=== PATIENT | female | born 1935 | race African-American/Black ===

== ENCOUNTER 2017-06-05 14:30 | Observation (INO) | payer OTHER, SELFPAY ==
--- NOTE | 2017-06-05 16:23 | RAD REPORT ---
EXAM DESCRIPTION: RAD - Chest Pa And Lat (2 Views) - 06/05/2017 3:21 pm CLINICAL HISTORY: Cough and congestion COMPARISON: September 2016 TECHNIQUE: PA and lateral views of the chest were obtained. 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 No consolidation, mass or failure. Lung markings are slightly more pronounced in the right base. Progressive fibrosis, interstitial edema and interstitial infiltrate will have a similar presentation. Heart size is normal and central vascula ture is within normal limits. No pleural effusion or pneumothorax seen. No acute bony finding noted . No aortic abnormality. IMPRESSION: Baseline interstitial fibrotic change with slightly increased markings in the right base . Findings could reflect progressive fibrosis in the right base or a minimal interstitial edema or infi ltrate.
--- NOTE | 2017-06-05 17:16 | ER ---
Nurse's Notes [facility] Name: Nitza Khanna Age: 82 yrs Sex: Female : 1935 Arrival Date: 06/05/2017 Time: 14:34 Bed 6 Private MD: Aba Rodriguez E Diagnosis: Pneumonia, unspecified organism Presentation: 06/05 15:01 Presenting complaint: Patient states: i have this cough for a week now, went to my doctor, gave me some antibiotics but its not clearing up; denies fever and chills; reports phlegm of yellow color; denies chest pain;. Transition of care: patient was not received from another setting of care. Onset of symptoms was June 05, 2017. Care prior to arrival: None. 15:01 Method Of Arrival: Ambulatory 15:01 Acuity: RADHA 3 22:07 Presenting complaint: Niece reports she tried to get her out of the car and patient ea almost collapsed. Patient reports weakness and SOB on exertion. Triage Assessment: 15:05 General: Appears in no apparent distress. uncomfortable, Behavior is calm, cooperative, hj appropriate for age. Pain: Denies pain. Respiratory: Historical: - Allergies: 15:04 Aspirin; hj - Home Meds: 15:04 alprazolam 0.25 mg Oral tab once a day [Active]; amlodipine 10 mg tab once daily [Active]; Effient Oral [Active]; hydrochlorothiazide 12.5 mg Oral tab once daily [Active]; Iron oral [Active]; lisinopril 40 mg Oral tab once daily [Active]; meclizine 25 mg Oral tab 1 tab once daily [Active]; metoprolol tartrate 50 mg Oral tab once daily [Active]; omeprazole 40 mg Oral cpDR 1 cap once daily [Active]; pravastatin 40 mg Oral tab 1 tab once daily [Active]; simvastatin 40 mg Oral tab once daily [Active]; - PMHx: 15:04 Anemia; DVT; GI Bleed; High Cholesterol; Hypertension; hj - PSHx: 15:04 None; hj - Immunization history:: Adult Immunizations up to date. - Social history:: Smoking status: unknown. Screenin:20 Abuse screen: Denies threats or abuse. Denies injuries from another. Nutritional aj1 screening: No deficits noted. Tuberculosis screening: No symptoms or risk factors identified. 19:31 Fall Risk None identified. aj1 Assessment: 15:05 Cardiovascular: Capillary refill < 3 seconds Patient's skin is warm and dry. hj Respiratory: Airway is patent Respiratory effort is even, unlabored, Respiratory pattern is regular, symmetrical. 16:20 General: Appears in no apparent distress. comfortable, Behavior is calm, cooperative, aj1 appropriate for age. Pain: Denies pain. Neuro: Level of Consciousness is awake, alert, obeys commands, Oriented to person, place, time, situation, Offender Employment Specialist are equal bilaterally Speech is normal, Facial symmetry appears normal. Cardiovascular: Heart tones S1 S2 present Capillary refill < 3 seconds Patient's skin is warm and dry. Rhythm is regular Chest pain is denied. Respiratory: Reports cough that is productive, Airway is patent Respiratory effort is even, unlabored, Respiratory pattern is regular, symmetrical, Breath sounds with wheezes bilaterally. Denies shortness of breath. GI: No signs and/or symptoms were reported involving the gastrointestinal system. : No signs and/or symptoms were reported regarding the genitourinary system. EENT: No signs and/or symptoms were reported regarding the EENT system. Derm: No signs and/or symptoms reported regarding the dermatologic system. Skin is pink, warm \T\ dry. normal. Musculoskeletal: No signs and/or symptoms reported regarding the musculoskeletal system. Circulation, motion, and sensation intact. 17:20 Reassessment: Patient appears in no apparent distress at this time. No changes from aj1 previously documented assessment. Patient and/or family updated on plan of care and expected duration. Pain level reassessed. Patient is alert, oriented x 3, equal unlabored respirations, skin warm/dry/pink. 18:39 Reassessment: Patient and/or family updated on plan of care and expected duration. Pain aj1 level reassessed. General: Appears in no apparent distress. comfortable, Behavior is calm, cooperative. Pain: Denies pain. Neuro: Level of Consciousness is awake, alert, obeys commands, Oriented to person, place, time, situation, Offender Employment Specialist are equal bilaterally Speech is normal, Facial symmetry appears normal. Cardiovascular: Patient's skin is warm and dry. Respiratory: Airway is patent Respiratory effort is even, unlabored, Respiratory pattern is regular, symmetrical. GI: No signs and/or symptoms were reported involving the gastrointestinal system. : No signs and/or symptoms were reported regarding the genitourinary system. EENT: No signs and/or symptoms were reported regarding the EENT system. Derm: Skin is pink, warm \T\ dry. normal. Musculoskeletal: Circulation, motion, and sensation intact. 18:45 Reassessment: discharge delayed due to Levaquin has not finished infusing. aj1 19:28 Reassessment: Patient appears in no apparent distress at this time. No changes from aj1 previously documented assessment. Patient and/or family updated on plan of care and expected duration. Pain level reassessed. Patient is alert, oriented x 3, equal unlabored respirations, skin warm/dry/pink. 23:15 Reassessment: Pt returned to ER after being discharged. FUSE COILER ordered for immediate tl2 admission. IV initiated and labs set. Awaiting room assigment. 06/06 00:41 Reassessment: report given to Pop ESPINOZA. bb 00:41 Reassessment: Patient appears in no apparent distress at this time. Patient and/or tl2 family updated on plan of care and expected duration. Pain level reassessed. Patient is alert, oriented x 3, equal unlabored respirations, skin warm/dry/pink. Pt stable and ready for transport to floor. Vital Signs: 06/05 15:05 BP 115 / 58; Pulse 71; Resp 18; Temp 98.1(TE); Pulse Ox 93% on R/A; Weight 65.77 kg; hj Height 5 ft. 0 in. (152.40 cm); Pain 0/10; 16:15 Pulse Ox 88% on R/A; aj1 16:19 BP 117 / 73; Pulse 83; Resp 24; Pulse Ox 95% on 2 lpm NC; aj1 17:20 BP 129 / 68; Pulse 81; Resp 18; Pulse Ox 100% on Nebulizer Mask; aj1 18:40 BP 114 / 62; Pulse 79; Resp 22; Pulse Ox 95% on 2 lpm NC; aj1 19:28 BP 123 / 56; Pulse 87; Resp 22; Pulse Ox 92% on R/A; aj1 22:11 BP 107 / 55; Pulse 80; Resp 20 S; Temp 97.5(O); Pulse Ox 93% ; Weight 61.23 kg; Height ea 5 ft. 5 in. (165.10 cm); Pain 0/10; 22:11 Body Mass Index 22.46 (61.23 kg, 165.10 cm) ea ED Course: 14:34 Patient arrived in ED. mr 14:34 Aba Rodriguez MD is Private Physician. mr 15:03 Triage completed. hj 15:05 Arm band placed on right wrist. hj 15:19 Patient moved to radiology via wheelchair. mh1 15:19 X-ray completed. Patient tolerated procedure well. mh1 15:19 Patient moved back from radiology. mh1 16:05 Carolina Burrell FNP-C is PHCP. snw 16:05 Tony Werner MD is Attending Physician. snw 16:18 Rica Olivares RN is Primary Nurse. aj1 16:20 Patient has correct armband on for positive identification. Placed in gown. Bed in low aj1 position. Call light in reach. Side rails up X 1. Adult w/ patient. certification and selection specialist on. Pulse ox on. NIBP on. 16:20 No provider procedures requiring assistance completed. aj1 17:15 Kyliegh Jeter MD is Hospitalizing Provider. snw 18:13 Emeka Mathis MD is Referral Physician. snw 18:13 Jonathan Brizuela MD is Referral Physician. snw 19:28 IV discontinued, intact, bleeding controlled, No redness/swelling at site. Pressure aj1 dressing applied. 21:34 Primary Nurse role handed off by Rica Olivares RN ds1 21:34 Attending Physician role handed off by Tony Werner MD ds1 22:40 Mely Segovia MD is Hospitalizing Provider. snw 23:10 Inserted saline lock: 20 gauge in right antecubital area, using aseptic technique. ak1 06/06 00:40 Sammi Mckinnon RN is Primary Nurse. tl2 00:41 Patient admitted, IV remains in place. tl2 Administered Medications: 06/05 17:39 Drug: Albuterol 2.5 mg Route: Inhalation; aj1 17:39 Drug: LevaQUIN 500 mg Volume: 100 ml; Route: IVPB; Infused Over: 60 mins; Site: right aj1 antecubital; 19:34 Follow up: IV Status: Completed infusion; IV Intake: 100ml aj1 17:59 Drug: Albuterol 2.5 mg Route: Inhalation; aj1 18:20 Drug: Albuterol 2.5 mg Route: Inhalation; aj1 19:34 Follow up: Response: No adverse reaction aj1 23:14 Drug: Albuterol 2.5 mg Route: Inhalation; tl2 Intake: 19:34 IV: 100ml; Total: 100ml. aj1 Outcome: 17:16 Decision to Hospitalize by Provider. snw 18:14 Discharge ordered by MD. snw 19:31 Discharged to home ambulatory. aj1 19:31 Condition: good 19:31 Discharge instructions given to patient, family, Instructed on discharge instructions, follow up and referral plans. medication usage, Demonstrated understanding of instructions, follow-up care, medications, Prescriptions given X 3. 19:35 Patient left the ED. aj1 22:41 Decision to Hospitalize by Provider. snw 06/06 00:43 Patient left the ED. tl2 Signatures: Rica Olivares RN RN aj1 Carolina Burrell, MANAGER BOOK-C MANAGER BOOK-Csnw Mari Mariano mr Alon Yulia 1 Dora Jose 1 Nehal Garland RN RN bb Krenek, Amber, RN RN ak1 Inocencio Posada RN RN hj Knox, Taylor, RN RN tl2 Meryl Bethea RN RN ea Corrections: (The following items were deleted from the chart) 06/05 15:05 15:01 Presenting complaint: Patient states: i have this cough for a week now, denies hj fever and chills; reports phlegm of yellow color; denies chest pain; hj
--- NOTE | 2017-06-05 17:16 | EDPHYS ---
Physician Documentation [facility] Name: Nitza Khanna Age: 82 yrs Sex: Female : 1935 Arrival Date: 06/05/2017 Time: 14:34 Bed 6 Private MD: Aba Rodriguez E ED Physician HPI: 06/05 16:18 This 82 yrs old Black Female presents to ER via Ambulatory with complaints of Cough, snw Congestion. 16:18 The patient or guardian reports cough, described as moderate. Onset: The snw symptoms/episode began/occurred 1 week(s) ago, and became persistent. Severity of symptoms: At their worst the symptoms were moderate. Associated signs and symptoms: Pertinent positives: rhinorrhea, productive cough, this patient has no pertinent positive symptoms. It is unknown whether or not the patient has had similar symptoms in the past. The patient has been recently seen by a physician: the patient's primary care provider, Dr. Brizuela with similar presenting complaints, was given a prescription for antibiotics. will obtain medication names from [facility]. Historical: - Allergies: 15:04 Aspirin; hj - Home Meds: 15:04 alprazolam 0.25 mg Oral tab once a day [Active]; amlodipine 10 mg tab once daily [Active]; Effient Oral [Active]; hydrochlorothiazide 12.5 mg Oral tab once daily [Active]; Iron oral [Active]; lisinopril 40 mg Oral tab once daily [Active]; meclizine 25 mg Oral tab 1 tab once daily [Active]; metoprolol tartrate 50 mg Oral tab once daily [Active]; omeprazole 40 mg Oral cpDR 1 cap once daily [Active]; pravastatin 40 mg Oral tab 1 tab once daily [Active]; simvastatin 40 mg Oral tab once daily [Active]; - PMHx: 15:04 Anemia; DVT; GI Bleed; High Cholesterol; Hypertension; hj - PSHx: 15:04 None; hj - Immunization history:: Adult Immunizations up to date. - Social history:: Smoking status: unknown. ROS: 16:18 Constitutional: Negative for fever, chills, and weight loss, Eyes: Negative for injury, snw pain, redness, and discharge, ENT: Negative for injury, pain, and discharge, Neck: Negative for injury, pain, and swelling, Cardiovascular: Negative for chest pain, palpitations, and edema, Respiratory: Positive for shortness of breath, cough, wheezing, and pleuritic chest pain, Abdomen/GI: Negative for abdominal pain, nausea, vomiting, diarrhea, and constipation, Back: Negative for injury and pain, : Negative for injury, bleeding, discharge, and swelling, MS/Extremity: Negative for injury and deformity, Skin: Negative for injury, rash, and discoloration, Neuro: Negative for headache, weakness, numbness, tingling, and seizure. Exam: 16:16 Constitutional: This is a well developed, well nourished patient who is awake, alert, snw and in no acute distress. Head/Face: Normocephalic, atraumatic. Eyes: Pupils equal round and reactive to light, extra-ocular motions intact. Lids and lashes normal. Conjunctiva and sclera are non-icteric and not injected. Cornea within normal limits. Periorbital areas with no swelling, redness, or edema. ENT: Nares patent. No nasal discharge, no septal abnormalities noted. Tympanic membranes are normal and external auditory canals are clear. Oropharynx with no redness, swelling, or masses, exudates, or evidence of obstruction, uvula midline. Mucous membranes moist. Neck: Trachea midline, no thyromegaly or masses palpated, and no cervical lymphadenopathy. Supple, full range of motion without nuchal rigidity, or vertebral point tenderness. No Meningismus. Chest/axilla: Normal chest wall appearance and motion. Nontender with no deformity. No lesions are appreciated. Cardiovascular: Regular rate and rhythm with a normal S1 and S2. No gallops, murmurs, or rubs. Normal PMI, no JVD. No pulse deficits. 16:16 Abdomen/GI: Soft, non-tender, with normal bowel sounds. No distension or tympany. No guarding or rebound. No evidence of tenderness throughout. Back: No spinal tenderness. No costovertebral tenderness. Full range of motion. Skin: Warm, dry with normal turgor. Normal color with no rashes, no lesions, and no evidence of cellulitis. MS/ Extremity: Pulses equal, no cyanosis. Neurovascular intact. Full, normal range of motion. Neuro: Awake and alert, GCS 15, oriented to person, place, time, and situation. Cranial nerves II-XII grossly intact. Motor strength 5/5 in all extremities. Sensory grossly intact. Cerebellar exam normal. Normal gait. 16:16 Respiratory: the patient does not display signs of respiratory distress, Respirations: accessory muscle usage, shallow respirations, Breath sounds: bronchial sounds, that are moderate, are heard in the left posterior lower lobe, wheezing: is heard diffusely. Vital Signs: 15:05 BP 115 / 58; Pulse 71; Resp 18; Temp 98.1(TE); Pulse Ox 93% on R/A; Weight 65.77 kg; hj Height 5 ft. 0 in. (152.40 cm); Pain 0/10; 16:15 Pulse Ox 88% on R/A; aj1 16:19 BP 117 / 73; Pulse 83; Resp 24; Pulse Ox 95% on 2 lpm NC; aj1 17:20 BP 129 / 68; Pulse 81; Resp 18; Pulse Ox 100% on Nebulizer Mask; aj1 18:40 BP 114 / 62; Pulse 79; Resp 22; Pulse Ox 95% on 2 lpm NC; aj1 19:28 BP 123 / 56; Pulse 87; Resp 22; Pulse Ox 92% on R/A; aj1 22:11 BP 107 / 55; Pulse 80; Resp 20 S; Temp 97.5(O); Pulse Ox 93% ; Weight 61.23 kg; Height ea 5 ft. 5 in. (165.10 cm); Pain 0/10; 22:11 Body Mass Index 22.46 (61.23 kg, 165.10 cm) ea MDM: 16:07 Patient medically screened. [facility] 16:25 Data reviewed: vital signs, nurses notes. Data interpreted: Pulse oximetry: on room air snw is 95 %. Interpretation: acceptable. Counseling: I had a detailed discussion with the patient and/or guardian regarding: the historical points, exam findings, and any diagnostic results supporting the discharge/admit diagnosis, lab results, radiology results. Other consultation: [facility] - pt was given recent rx for Z-max, Tessalon, and HCTZ. 18:15 Special discussion: Based on the history and exam findings, there is no indication for snw further emergent testing or inpatient evaluation. I discussed with the patient/guardian the need to see the primary care provider for further evaluation of the symptoms. I discussed with the patient/guardian the need to see the canceling and cutting control clerk for further evaluation of the symptoms. ED course: Dr. Jeter saw pt in ED, spoke with Dr. Mathis regarding f/u urgently and he will see her tomorrow. . 22:36 ED course: pt briefly left ED, went to pharmacy to fill prescriptions. The medications snw were going to take a while so the patients Daughter took her to the house. Ms. Khanna felt weak and needed assistance to get out of the car. + worsening crackles. . 06/05 16:16 Order name: Basic Metabolic Panel snw 06/05 16:16 Order name: CBC with Diff snw 06/05 16:16 Order name: Hepatic Function snw 06/05 16:16 Order name: Lipase snw 06/05 16:16 Order name: Blood Culture Adult (2) snw 06/05 17:37 Order name: CBC with Automated Diff; Complete Time: 18:17 EDMS 06/05 15:01 Order name: Chest Pa And Lat (2 Views) XRAY w 06/05 17:48 Order name: Basic Metabolic Panel; Complete Time: 18:07 EDMS 06/05 17:48 Order name: Lipase; Complete Time: 18:07 EDMS 06/05 17:54 Order name: Liver (Hepatic) Function; Complete Time: 18:07 EDMS 06/05 18:14 Order name: CBC Smear Scan; Complete Time: 18:17 EDMS 06/05 22:35 Order name: Procalcitonin snw 06/05 22:35 Order name: Lactate w 06/05 23:49 Order name: Lactate; Complete Time: 00:22 EDMS 06/05 16:16 Order name: IV Saline Lock; Complete Time: 17:54 snw 06/05 16:16 Order name: Labs collected and sent; Complete Time: 17:54 snw 06/05 16:23 Order name: RAD; Complete Time: 16:32 EDMS 06/05 17:56 Order name: Diet Heart Healthy; Complete Time: 17:57 aj 06/05 22:35 Order name: SL; Complete Time: 23:10 snw Administered Medications: 17:39 Drug: Albuterol 2.5 mg Route: Inhalation; aj1 17:39 Drug: LevaQUIN 500 mg Volume: 100 ml; Route: IVPB; Infused Over: 60 mins; Site: right aj1 antecubital; 19:34 Follow up: IV Status: Completed infusion; IV Intake: 100ml aj1 17:59 Drug: Albuterol 2.5 mg Route: Inhalation; aj1 18:20 Drug: Albuterol 2.5 mg Route: Inhalation; aj1 19:34 Follow up: Response: No adverse reaction aj1 23:14 Drug: Albuterol 2.5 mg Route: Inhalation; tl2 Disposition: 06/06 14:52 Co-signature as Attending Physician, Tony AGUILA I agree with the assessment and torsten plan of care. Disposition: 06/05/17 22:41 Hospitalization ordered by Mely Segovia for Inpatient Admission. Preliminary diagnosis is Pneumonia, unspecified organism. - Bed requested for Telemetry/MedSurg (Inpatient). - Status is Inpatient Admission. tl2 - Condition is Stable. - Problem is an acute exacerbation. - Symptoms have worsened. UTI on Admission? No Signatures: Dispatcher [employer] EDRica Taylor RN RN aj1 Kylie Kelly, RN Tony Munson MD MD cha Therrien, Shelly, TRANSFER AND PUMPHOUSE OPERATOR-C TRANSFER AND PUMPHOUSE OPERATOR-Csnw Inocencio Posada RN Sammi Paredes RN RN tl2
[2017-06-05 17:28] LABS: Absolute Lymphocytes (CBC) 1.3 K/uL (0.7-4.9); Absolute Monocytes 1.3 K/uL (0.1-1.3); Absolute Neutrophil 5.9 K/uL (1.8-8.0); Basophils % 0.4 % (0-1.3); Eosinophils % 0.1 % (0-4.4); MCH 23.2 pg (27.0-35.0); MCV 71.1 fL (80-100); MPV 9.3 fL (7.6-11.3); Monocytes % 15.2 % (3.3-12.3)
[2017-06-05] MEDS ORDERED: Levofloxacin500mg IV 500 MG/100 ML BAG IV ONE (17:46)
[2017-06-05] MEDS ORDERED: ALBUTEROL 2.5 MG/3 ML NEB SOL ONE ×2 (17:46→23:31)
[2017-06-05 17:47] LABS: Potassium 3.4 mEq/L (3.6-5.0)
[2017-06-05 17:54] LABS: Albumin 3.7 g/dL (3.2-5.5); Bilirubin Direct 0.1 mg/dL (0-0.2); Bilirubin Total 0.7 mg/dL (0.3-1.2); Protein, Total 8.1 g/dL (6.0-8.3)
[2017-06-05 18:13] LABS: Blood Morphology Comment NOT SEEN (NOT SEEN); Platelet Estimate ADEQ; Urine White Blood Cell Casts OK
[2017-06-06 00:56] VITALS: BMI 24.8
[2017-06-06] MEDS ORDERED: ACETAMINOPHEN 500 MG TAB PO PRN (01:28)
[2017-06-06] MEDS ORDERED: ONDANSETRON 4 MG/2 ML VIAL IV PRN (01:28)
[2017-06-06] MEDS: NA CHLORIDE 0.9% 1,000 ML IV SCH ×2 (02:05→10:07)
[2017-06-06] MEDS: METHYLPREDNISOLONE 125 MG INJ IV SCH ×2 (02:06→05:17)
--- NOTE | 2017-06-06 02:25 | P.HP ---
Certification for Inpatient Patient admitted to: Inpatient With expected LOS: >2 Midnights Practitioner: I am a practitioner with admitting privileges, knowledge of patient current condition, hospital course, and medical plan of care. Services: Services provided to patient in accordance with Admission requirements found in Title 42 Section 412.3 of the Code of Federal Regulations Patient History Date of Service: 06/05/17 Reason for admission: pneumonia History of Present Illness: Ms Khanna is an 82 years old woman with history of COPD, who start about 5 days ago with dry cough and progressive SOB. She went to see her PCP and was prescribed oral antibiotics. The patient did not improved her symptoms, and she came to ED this morning. She was diagnosed with right lower lobe pneumonia. It was felt that the patient was clinically stable to be discharged on oral Levaquin. However, shortly after leave the hospital, the patient had a near syncope episode, worsening her SOB as well. The patient then came back to ED. Lab work show normal WBC count with elevated lactate and normal procalcitonin. CXR as mentioned above shows chronic fibrotic pattern with a right lower lobe infiltrate. No fever in ER, O2 sat 92% on RA. Allergies aspirin Allergy (Severe, Verified 08/03/15 14:22) Hives/Rash Home Medications: Lisinopril 40 mg PO DAILY #0 tablet 08/27/11 Meclizine HCl 25 mg PO TID PRN 02/17/14 Pravastatin Sodium [Pravachol] 40 mg PO DAILY 02/17/14 Docusate Sodium 100 mg PO BID 06/23/15 Ferrous Sulfate [Ferrous Sulfate*] 325 mg PO DAILY 06/23/15 Hydrochlorothiazide 12.5 mg PO DAILY 06/23/15 Aspirin [Adult Low Dose Aspirin EC] 81 mg PO DAILY #30 tablet. 06/26/15 Pantoprazole [Protonix Tab*] 40 mg PO DAILY 12/23/15 Amlodipine [Norvasc*] 5 mg PO DAILY #30 tab 12/24/15 Ferrous Sulfate 325 mg PO DAILY #30 tablet 12/24/15 Metoprolol Tartrate [Lopressor*] 50 mg PO BID #60 tab 12/24/15 - Past Medical/Surgical History Diabetic: No -: SHINGLES -: HTN -: HYPERLIPIDEMIA -: ANEMIA -: DVT IN LEFT LEG -: GI BLEED -: HYSTERECTOMY -: CABG - Family History Mother -: Heart disease - Social History Smoking Status: Light Tobacco smoker (1-9 cigarettes/day) Counseled patient to stop smoking for: less than 10 minutes Alcohol use: No CD- Drugs: No Caffeine use: Yes Place of Residence: Home Review of Systems 10-point ROS is otherwise unremarkable Physical Examination - Vital Signs Temperature: 97.3 F Blood Pressure: 119/63 Pulse: 95 Respirations: 18 Pulse Ox (%): 94 - Physical Exam General: Alert, In no apparent distress HEENT: Atraumatic, PERRLA, Mucous membr. moist/pink, EOMI, Sclerae nonicteric Neck: Supple, 2+ carotid pulse no bruit, No LAD, Without JVD or thyroid abnormality Respiratory: Normal air movement, Crackles/rales (bibasilar crackles, more on the right base) Cardiovascular: Regular rate/rhythm, Normal S1 S2 Gastrointestinal: Normal bowel sounds, No tenderness Musculoskeletal: No tenderness Integumentary: No rashes Neurological: Normal speech, Normal strength at 5/5 x4 extr, Normal tone, Normal affect Lymphatics: No axilla or inguinal lymphadenopathy - Studies Laboratory Data (last 24 hrs) 06/05/17 17:05: WBC 8.5, Hgb 13.7, Hct 42.0, Plt Count 246 06/05/17 17:05: Sodium 142, Potassium 3.4 L, BUN 38 H, Creatinine 1.79 H, Glucose 115, Total Bilirubin 0.7, AST 16, ALT 12, Alkaline Phosphatase 82, Lipase 30 Assessment and Plan - Problems (Diagnosis) (1) COPD exacerbation Current Visit: Yes Status: Acute (2) Near syncope Current Visit: Yes Status: Acute (3) Pulmonary fibrosis Current Visit: Yes Status: Acute (4) Pneumonia Current Visit: Yes Status: Acute Qualifiers: Pneumonia type: due to unspecified organism Laterality: right Lung location: lower lobe of lung Qualified Code(s): J18.1 - Lobar pneumonia, unspecified organism (5) Acute kidney injury superimposed on CKD Current Visit: Yes Status: Acute - Plan Ms Khanna will be admitted to the hospital due to near syncope episode in context of respiratory distress secondary to COPD exacerbation. CXR consistent with right lower lobe infiltrate. Will order empiric IV Levaquin, consult Dr Mathis, continue breating treatments, IV steroids and IV fluids. - Advance Directives Does patient have a Living Will: No Does patient have a Durable POA for Healthcare: Yes - Code Status/Comfort Care Code Status Assessed: Yes Code Status: Full Code
[2017-06-06] MEDS: IPRATROPIUM BROM 0.5MG/2.5ML NEB SCH ×3 (03:00→08:29)
[2017-06-06] MEDS: ALBUTEROL 2.5 MG/3 ML NEB SOL NEB SCH ×3 (03:00→08:29)
[2017-06-06 06:21] LABS: Absolute Lymphocytes (CBC) 0.4 K/uL (0.7-4.9); Absolute Monocytes 0.1 K/uL (0.1-1.3); Absolute Neutrophil 6.3 K/uL (1.8-8.0); Basophils % 0.5 % (0-1.3); Eosinophils % 0.1 % (0-4.4); Hematocrit 39.1 % (36.0-45.0); Lymphocytes % 6.4 % (15.3-44.8); MCH 23.1 pg (27.0-35.0); MCV 70.6 fL (80-100); MPV 9.7 fL (7.6-11.3); RBC Red Blood Cell Count 5.54 M/uL (3.86-4.86)
[2017-06-06 06:26] LABS: Potassium 3.3 mEq/L (3.6-5.0)
[2017-06-06] MEDS ORDERED: POTASSIUM 25 MEQ EFFERV TAB PO ONE (07:00)
[2017-06-06] MEDS ORDERED: FUROSEMIDE 40 MG/4 ML VIAL IV SCH (09:00)
[2017-06-06] MEDS ORDERED: Levofloxacin500mg IV 500 MG/100 ML BAG IV SCH (09:00)
--- NOTE | 2017-06-06 10:24 | P.CNS ---
Date of Consult: 06/06/17 Chief Complaint: pneumonia History of Present Illness: Patient is 82 years of age admitted to the hospital complaining of fogginess she denied any syncopal attacks also has some chronic intermittent dyspnea he is an active smoker does not use any bronchodilators at home was coughing up some pink sputum no new complaints no fever chills or chest pain Allergies aspirin Allergy (Severe, Verified 08/03/15 14:22) Hives/Rash Home Medications: Lisinopril 40 mg PO DAILY #0 tablet 08/27/11 Meclizine HCl 25 mg PO TID PRN 02/17/14 Pantoprazole [Protonix Tab*] 40 mg PO DAILY 12/23/15 Ferrous Sulfate 325 mg PO DAILY #30 tablet 12/24/15 Metoprolol Tartrate [Lopressor*] 50 mg PO BID #60 tab 12/24/15 Amlodipine [Norvasc*] 10 mg PO DAILY 06/06/17 Atorvastatin Calcium [Lipitor] 1 tab PO DAILY 06/06/17 Hydrochlorothiazide [Hydrochlorothiazide] 1 tab PO DAILY 06/06/17 - Past Medical/Surgical History Diabetic: No -: SHINGLES -: HTN -: HYPERLIPIDEMIA -: ANEMIA -: DVT IN LEFT LEG -: GI BLEED -: HYSTERECTOMY -: CABG - Family History Mother Medical History: Heart disease - Social History Smoking Status: Unknown if ever smoked Alcohol use: No CD- Drugs: No Caffeine use: Yes Place of Residence: Home Review of Systems General: Weakness Respiratory: Shortness of Breath Physical Examination Temp Pulse Resp BP Pulse Ox 98.1 F 91 H 18 169/80 H 92 06/06/17 08:00 06/06/17 08:00 06/06/17 08:00 06/06/17 08:00 06/06/17 08:00 General: Alert, Oriented x3 Neck: Supple Respiratory: Clear to auscultation bilaterally Cardiovascular: No edema, Normal S1 S2 Gastrointestinal: Normal bowel sounds, Soft and benign Laboratory Data (last 24 hrs) 06/05/17 17:05: WBC 8.5, Hgb 13.7, Hct 42.0, Plt Count 246 06/05/17 17:05: Sodium 142, Potassium 3.4 L, BUN 38 H, Creatinine 1.79 H, Glucose 115, Total Bilirubin 0.7, AST 16, ALT 12, Alkaline Phosphatase 82, Lipase 30 - Problems (1) Dizziness Onset Date: 05/29/15 Current Visit: No Status: Acute Plan: Patient is 82 years of age admitted with some dizziness intermittent shortness of breath. History of coronary artery disease also has renal failure I doubt if she has pneumonia are normal white count I suggest that she be started on Lasix fluid restriction she probably has underlying obstructive airways disease a trial of bronchodilators all antibiotics needed patient can be discharged home to follow up with me in 2 weeks room-air saturation is satisfactory and also given a low-dose prednisone 10 twice a day for 7 days
[2017-06-06 10:44] VITALS: O2SAT 92
[2017-06-06 13:56] VITALS: BP 175/72; TEMP 99
[2017-06-06] MEDS ORDERED: ALBUTEROL 2.5 MG/3 ML NEB SOL NEB SCH (14:00)
[2017-06-06] MEDS ORDERED: IPRATROPIUM BROM 0.5MG/2.5ML NEB SCH (14:00)
--- NOTE | 2017-06-06 14:50 | ECHO ---
HEIGHT: 5 ft 0 in WEIGHT: 127 lb 1.6 oz DATE OF STUDY: 06/06/[address]: Emeka Mathis MD 2-DIMENSIONAL: YES M.MODE: YES DOPPLER: YES COLOR FLOW: YES TDS: PORTABLE: DEFINITY: BUBBLE STUDY: DIAGNOSIS: POSSIBLE SYNCOPAL ATTACK CARDIAC HISTORY: CATHERIZATION: NO SURGERY: NO PROSTHETIC VALVE: NO PACEMAKER: NO MEASUREMENTS (cm) DIASTOLIC (NORMALS) SYSTOLIC (NORMALS) IVSd 1.1 (0.6-1.2) LA Diam 3.4 (1.9-4.0) LVEF 88% LVIDd 4.2 (3.5-5.7) LVIDs 1.8 (2.0-3.5) %FS 58% LVPWd 1.0 (0.6-1.2) Ao Diam 2.5 (2.0-3.7) 2 DIMENSIONAL ASSESSMENT: RIGHT ATRIUM: DILATED LEFT ATRIUM: DILATED RIGHT VENTRICLE: NORMAL LEFT VENTRICLE: NORMAL TRICUSPID VALVE: NORMAL MITRAL VALVE: NORMAL PULMONIC VALVE: NORMAL AORTIC VALVE: NORMAL PERICARDIAL EFFUSION: NONE AORTIC ROOT: NORMAL LEFT VENTRICULAR WALL MOTION: NORMAL DOPPLER/COLOR FLOW: MILD MITRAL AND TRICUSPID REGURGITATION. ESTIMATED RIGHT VENTRICULAR SYSTOLIC PRESSURE 40 mmHg (MILD PULMONARY HYPERTENSION). IMPAIRED LEFT VENTRICULAR COMPLIANCE. COMMENTS: NORMAL LEFT VENTRICULAR EJECTION FRACTION. DILATED LEFT AND RIGHT ATRIUM. MILD MITRAL AND TRICUSPID REGURGITATION. MILD PULMONARY HYPERTENSION. IMPAIRED LEFT VENTRICULAR RELAXATION. TECHNOLOGIST: AUNDREA ARMSTRONG
--- NOTE | 2017-06-06 16:13 | P.SSS ---
Patient History Date of Service: 06/06/17 Primary Care Provider: Dr Hale. Reason for admission: pneumonia History of Present Illness: Ms Khanna is an 82 years old woman with history of COPD, who start about 5 days ago with dry cough and progressive SOB. She went to see her PCP and was prescribed oral antibiotics. The patient did not improved her symptoms, and she came to ED this morning. She was diagnosed with right lower lobe pneumonia. It was felt that the patient was clinically stable to be discharged on oral Levaquin. However, shortly after leave the hospital, the patient had a near syncope episode, worsening her SOB as well. The patient then came back to ED. Lab work show normal WBC count with elevated lactate and normal procalcitonin. CXR as mentioned above shows chronic fibrotic pattern with a right lower lobe infiltrate. No fever in ER, O2 sat 92% on RA. Allergies aspirin Allergy (Severe, Verified 08/03/15 14:22) Hives/Rash Home Medications: Lisinopril 40 mg PO DAILY #0 tablet 08/27/11 Meclizine HCl 25 mg PO TID PRN 02/17/14 Pantoprazole [Protonix Tab*] 40 mg PO DAILY 12/23/15 Ferrous Sulfate 325 mg PO DAILY #30 tablet 12/24/15 Metoprolol Tartrate [Lopressor*] 50 mg PO BID #60 tab 12/24/15 Amlodipine [Norvasc*] 10 mg PO DAILY 06/06/17 Atorvastatin Calcium [Lipitor] 1 tab PO DAILY 06/06/17 Fluticasone/Salmeterol [Advair Hfa 115-21 Mcg Inhaler] 8 gm IH BID #1 aer.w.adap 06/06/17 Furosemide [Lasix] 20 mg PO DAILY #30 tab 06/06/17 Hydrochlorothiazide 1 tab PO DAILY 06/06/17 Prednisone [Prednisone*] 20 mg PO BID #20 tab 06/06/17 - Past Medical/Surgical History Has patient received pneumonia vaccine in the past: No Diabetic: No -: SHINGLES -: HTN -: HYPERLIPIDEMIA -: ANEMIA -: DVT IN LEFT LEG -: GI BLEED -: HYSTERECTOMY -: CABG - Family History Mother -: Heart disease - Social History Smoking Status: Light Tobacco smoker (1-9 cigarettes/day) Alcohol use: No CD- Drugs: No Caffeine use: Yes Place of Residence: Home Review of Systems 10-point ROS is otherwise unremarkable Physical Examination - Vital Signs Temperature: 99 F Blood Pressure: 175/72 Pulse: 104 Respirations: 18 Pulse Ox (%): 91 - Physical Exam General: Alert, In no apparent distress, Oriented x3 HEENT: Atraumatic, PERRLA, Mucous membr. moist/pink, EOMI, Sclerae nonicteric Neck: Supple, 2+ carotid pulse no bruit, No LAD, Without JVD or thyroid abnormality Respiratory: Clear to auscultation bilaterally, Normal air movement Cardiovascular: Regular rate/rhythm, Normal S1 S2 Gastrointestinal: Normal bowel sounds, No tenderness Musculoskeletal: No tenderness Integumentary: No rashes Neurological: Normal gait, Normal speech, Normal strength at 5/5 x4 extr, Normal tone, Normal affect Lymphatics: No axilla or inguinal lymphadenopathy - Studies Laboratory Data (last 24 hrs) 06/05/17 17:05: WBC 8.5, Hgb 13.7, Hct 42.0, Plt Count 246 06/05/17 17:05: Sodium 142, Potassium 3.4 L, BUN 38 H, Creatinine 1.79 H, Glucose 115, Total Bilirubin 0.7, AST 16, ALT 12, Alkaline Phosphatase 82, Lipase 30 - Diagnosis (Problem(s)) (1) COPD exacerbation Onset Date: 06/06/17 Current Visit: Yes Status: Acute Plan: Most likely 2/2 to pulmonary Fibrosis -Pulmonology Consulted. Appreicated Reccs -DC home with PO steriods and Bronchodilaters (2) CHF (congestive heart failure) Current Visit: Yes Status: Acute Plan: Chronic CHF -LASix 20mg Daily started/. -Low NA diet. Qualifiers: Heart failure type: diastolic Heart failure chronicity: chronic Qualified Code(s): I50.32 - Chronic diastolic (congestive) heart failure (3) Near syncope Onset Date: 06/06/17 Current Visit: Yes Status: Acute Plan: Most Likely Vertigo. -Meclizine given. (4) Pulmonary fibrosis Onset Date: 06/06/17 Current Visit: Yes Status: Acute - Disposition Disposition: ROUTINE DISCHARGE Condition: GOOD Diet: Regular Activity: Ad shaina
[2017-06-06] MEDS ORDERED: predniSONE 20 MG TAB PO SCH (21:00)
== END 2017-06-06 19:20 | disposition home or self-care (01) ==
LOC: ER 14:30 → ERHOLD 22:42 → INTOOBSV 22:42 → 4TH 06-06 00:23
PROVIDERS: ADMIT Family Medicine; ATTEND Internal Medicine
DX: J44.0 Chronic obstructive pulmonary disease with (acute) lower respiratory infection (principal); J18.9 Pneumonia, unspecified organism; J44.1 Chronic obstructive pulmonary disease with (acute) exacerbation; J84.10 Pulmonary fibrosis, unspecified; I10 Essential (primary) hypertension; I25.10 Atherosclerotic heart disease of native coronary artery without angina pectoris; I50.22 Chronic systolic (congestive) heart failure; Z95.1 Presence of aortocoronary bypass graft; Z88.6 Allergy status to analgesic agent
CPT/HCPCS: 36415; 71046; 80048 ×2; 80076; 83605 ×2; 83690; 84145; 85025 ×2; 87040 ×2; 93306; 94640; 94760 ×2; 96365; 96366; 99285; G0378 ×2; J2930 ×2; J7030

== ENCOUNTER 2017-09-05 13:38 | Emergency (ER) | payer OTHER, SELFPAY ==
[2017-09-05] MEDS ORDERED: NA CHLORIDE 0.9% 500 ML ONE ×2 (14:54→15:48)
[2017-09-05 15:11] LABS: Absolute Monocytes 0.4 K/uL (0.1-1.3); Absolute Neutrophil 9.4 K/uL (1.8-8.0); Basophils % 0.4 % (0-1.3); Hematocrit 39.4 % (36.0-45.0); Lymphocytes % 9.5 % (15.3-44.8); MCH 22.8 pg (27.0-35.0); MCV 71.5 fL (80-100); MPV 9.6 fL (7.6-11.3)
[2017-09-05 15:30] LABS: Albumin 3.3 g/dL (3.4-5.0); Bilirubin Direct 0.1 mg/dL (0-0.2); Bilirubin Total 0.5 mg/dL (0.2-1.0); Potassium 3.7 mmol/L (3.5-5.1); Protein, Total 6.8 g/dL (6.4-8.2)
[2017-09-05 15:33] LABS: Platelet Estimate ADEQ; Urine White Blood Cell Casts OK
[2017-09-05 15:34] LABS: Blood Morphology Comment NOT SEEN (NOT SEEN)
--- NOTE | 2017-09-05 17:44 | EDPHYS ---
Physician Documentation [facility] Name: Nitza Khanna Age: 82 yrs Sex: Female : 1935 Arrival Date: 09/05/2017 Time: 13:41 Bed 13 Private MD: Aba Rodriguez E ED Physician Janes Sanchez HPI: 09/05 16:00 This 82 yrs old Black Female presents to ER via Wheelchair with complaints of low blood jr8 pressure . 16:00 Patient stated that she has history of vertigo. Was feeling dizzy this morning. Had jr8 taken her medication for it but was still not feeling well . Severity of symptoms: At their worst the symptoms were mild in the emergency department the symptoms are unchanged. The patient has not experienced similar symptoms in the past. The patient has not recently seen a physician. Historical: - Allergies: 13:59 aspirin EC; sv - Home Meds: 19:22 amlodipine 10 mg tab once daily [Active]; lisinopril 40 mg Oral tab once daily em [Active]; omeprazole 40 mg Oral cpDR 1 cap once daily [Active]; alprazolam 0.25 mg Oral tab once a day [Active]; meclizine 25 mg Oral tab 1 tab once daily [Active]; hydrochlorothiazide 12.5 mg Oral tab once daily [Active]; Lasix 20 mg Oral tab 1 tab once daily [Active]; - PMHx: 13:59 Anemia; DVT; GI Bleed; High Cholesterol; Hypertension; sv - Immunization history:: Adult Immunizations up to date. - Social history:: Smoking status: Patient uses tobacco products, smokes one-half pack cigarettes per day. - Ebola Screening: : No symptoms or risks identified at this time. ROS: 16:00 Eyes: Negative for injury, pain, redness, and discharge, ENT: Negative for injury, jr8 pain, and discharge, Neck: Negative for injury, pain, and swelling, Cardiovascular: Negative for chest pain, palpitations, and edema, Respiratory: Negative for shortness of breath, cough, wheezing, and pleuritic chest pain, Abdomen/GI: Negative for abdominal pain, nausea, vomiting, diarrhea, and constipation, Back: Negative for injury and pain, MS/Extremity: Negative for injury and deformity, Skin: Negative for injury, rash, and discoloration. 16:00 Neuro: Positive for dizziness, Negative for altered mental status, gait disturbance, headache, hearing loss, loss of consciousness, numbness, seizure activity, speech changes, syncope, near syncope, tingling, tinnitus, tremor, visual changes, weakness. Exam: 16:00 Eyes: Pupils equal round and reactive to light, extra-ocular motions intact. Lids and jr8 lashes normal. Conjunctiva and sclera are non-icteric and not injected. Cornea within normal limits. Periorbital areas with no swelling, redness, or edema. ENT: Nares patent. No nasal discharge, no septal abnormalities noted. Tympanic membranes are normal and external auditory canals are clear. Oropharynx with no redness, swelling, or masses, exudates, or evidence of obstruction, uvula midline. Mucous membranes moist. Neck: Trachea midline, no thyromegaly or masses palpated, and no cervical lymphadenopathy. Supple, full range of motion without nuchal rigidity, or vertebral point tenderness. No Meningismus. Cardiovascular: Regular rate and rhythm with a normal S1 and S2. No gallops, murmurs, or rubs. Normal PMI, no JVD. No pulse deficits. Respiratory: Lungs have equal breath sounds bilaterally, clear to auscultation and percussion. No rales, rhonchi or wheezes noted. No increased work of breathing, no retractions or nasal flaring. Abdomen/GI: Soft, non-tender, with normal bowel sounds. No distension or tympany. No guarding or rebound. No evidence of tenderness throughout. Back: No spinal tenderness. No costovertebral tenderness. Full range of motion. Skin: Warm, dry with normal turgor. Normal color with no rashes, no lesions, and no evidence of cellulitis. MS/ Extremity: Pulses equal, no cyanosis. Neurovascular intact. Full, normal range of motion. 16:00 Neuro: Orientation: to person, place \T\ time. Mentation: is normal, Memory: is normal, immediate memory is intact, recent memory is intact, remote memory is intact, Cranial nerves: CN I not tested, CN II- XII are normal as tested, visual bonner are intact. extraocular movements are intact, Facial palsy and sensory deficits are absent. Nystagmus is absent. Speech is clear and appropriate. Tongue strength is normal, Cerebellar function: normal finger to nose testing, Motor: moves all fours, strength is 5/5 in all extremities, Sensation: no obvious gross deficits, Gait: is steady, seizure activity, is not displayed by the patient, Abnormal movements: there are no abnormal movements. Vital Signs: 14:00 BP 98 / 53; Pulse 76; Resp 18; Temp 98.6; Pulse Ox 99% ; Weight 61.69 kg; Height 5 ft. sv 1 in. (154.94 cm); Pain 0/10; 14:42 BP 129 / 71; Resp 18; Pulse Ox 99% on R/A; Pain 0/10; em 15:11 BP 150 / 60 Supine; Pulse 60; em 15:11 BP 134 / 58 Sitting; Pulse 66; em 15:11 BP 106 / 56 Standing; Pulse 76; em 16:00 BP 183 / 64; Pulse 71; Resp 16; Pulse Ox 98% on R/A; em 16:38 BP 180 / 88; Pulse 63; em 17:54 BP 227 / 89 Supine; Pulse 61; em 17:54 BP 180 / 87 Sitting; Pulse 67; em 18:47 BP 206 / 82; Pulse 67; Resp 16; Pulse Ox 99% on R/A; Pain 0/10; em 19:00 BP 239 / 77; Pulse 58; Resp 18; Pulse Ox 98% ; tl2 19:31 BP 240 / 90; Pulse 64; Resp 18; Pulse Ox 97% on R/A; Pain 0/10; tl2 19:51 BP 226 / 82; Pulse 62; Resp 18; Pulse Ox 97% on R/A; tl2 20:06 BP 216 / 83; tl2 20:34 BP 230 / 98 RA Sitting (man/reg); jd3 20:43 BP 238 / 78; Pulse 64; Resp 18; Pulse Ox 99% on R/A; tl2 21:10 BP 224 / 81; Pulse 63; Resp 18; Pulse Ox 100% on R/A; tl2 21:40 BP 142 / 54; Pulse 65; Resp 18; Pulse Ox 98% on R/A; tl2 22:01 BP 124 / 47; Pulse 72; Resp 18; Pulse Ox 98% on R/A; tl2 22:20 BP 134 / 49; Pulse 71; Resp 18; Pulse Ox 99% on R/A; tl2 23:00 BP 141 / 58; Pulse 65; Resp 18; Pulse Ox 100% on R/A; tl2 14:00 Body Mass Index 25.70 (61.69 kg, 154.94 cm) sv MDM: 14:24 Patient medically screened. [facility] 17:43 Data reviewed: vital signs, nurses notes, lab test result(s), and as a result, I will jr8 discharge patient. Data interpreted: Pulse oximetry: on room air is 99 %. Interpretation: normal. Counseling: I had a detailed discussion with the patient and/or guardian regarding: the historical points, exam findings, and any diagnostic results supporting the discharge/admit diagnosis, lab results, the need for outpatient follow up, a family practitioner, to return to the emergency department if symptoms worsen or persist or if there are any questions or concerns that arise at home. Response to treatment: the patient's symptoms have markedly improved after treatment, patient is well hydrated. 09/05 14:50 Order name: Basic Metabolic Panel; Complete Time: 15:37 [facility] 09/05 14:50 Order name: CBC with Diff; Complete Time: 15:37 [facility] 09/05 14:50 Order name: Creatinine for Radiology; Complete Time: 15:37 [facility] 09/05 14:50 Order name: Hepatic Function; Complete Time: 15:37 [facility] 09/05 14:50 Order name: Magnesium; Complete Time: 15:37 [facility] 09/05 15:12 Order name: CBC Smear Scan; Complete Time: 15:37 EDMS 09/05 16:37 Order name: BUN; Complete Time: 17:40 [facility] 09/05 16:37 Order name: Creatinine, Serum [facility] 09/05 20:26 Order name: Urine Dipstick--Ancillary (enter results); Complete Time: 20:49 2 09/05 14:50 Order name: IV Saline Lock; Complete Time: 15:20 [facility] 09/05 14:50 Order name: Labs collected and sent; Complete Time: 15:19 [facility] 09/05 14:50 Order name: Urine Dipstick-Ancillary (obtain specimen); Complete Time: 20:14 [facility] 09/05 14:50 Order name: Orthostatics; Complete Time: 15:20 [facility] 09/05 17:31 Order name: Diet Regular; Complete Time: 17:32 em Administered Medications: 15:19 Drug: NS 0.9% 500 ml Route: IV; Rate: bolus; Site: right antecubital; em 18:48 Follow up: IV Status: Completed infusion; IV Intake: 500ml em 15:53 Drug: NS 0.9% 500 ml Route: IV; Rate: bolus; Site: right antecubital; em 18:48 Follow up: IV Status: Completed infusion; IV Intake: 500ml em 17:57 Not Given (Physician Discretion): hydrALAZINE 10 mg IV at calculated rate once jr8 18:10 Drug: Enalaprilat 0.625 mg Route: IV; Rate: calculated rate; Site: right antecubital; sg 18:48 Follow up: Response: No adverse reaction; IV Status: Completed infusion em 19:26 Drug: Enalaprilat 0.625 mg Route: IV; Rate: calculated rate; Site: right antecubital; tl2 21:36 Follow up: Response: No adverse reaction; Blood pressure is unchanged; IV Status: tl2 Completed infusion 19:26 Drug: amLODIPine 10 mg Route: PO; tl2 21:36 Follow up: Response: No adverse reaction; Blood pressure is unchanged tl2 21:34 Drug: hydrALAZINE 20 mg Route: IV; Rate: calculated rate; Site: right jugular; tl2 23:02 Follow up: Response: Blood pressure is lowered; IV Status: Completed infusion tl2 Disposition: 09/05/17 17:44 Discharged to Home. Impression: Dehydration. - Condition is Stable. - Discharge Instructions: Dehydration, Elderly. - Medication Reconciliation Form, Thank You Letter, Antibiotic Education, Prescription Opioid Use form. - Follow up: Aba Rodriguez MD; When: 2 - 3 days; Reason: Recheck today's complaints, Continuance of care, Re-evaluation by your physician. - Problem is new. - Symptoms have improved. Addendum: 09/08/2017 19:40 Co-signature as Attending Physician, Janes Sanchez MD. r n Signatures: Dispatcher [employer] Kristy Fan RN Angel Bocanegra RN RN sg Jose Juan Schofield, FARM MANAGEMENT ADVISER FARM MANAGEMENT ADVISER em Janes Sanchez MD MD rn Roszak, Josh, PA PA jr8 Sammi Mckinnon RN RN tl2 Corrections: (The following items were deleted from the chart) 09/05 17:50 17:44 09/05/2017 17:44 Discharged to Home. Impression: Dehydration; Hypotension. jr8 Condition is Stable. Forms are Medication Reconciliation Form, Thank You Letter, Antibiotic Education, Prescription Opioid Use. Follow up: Aba Rodriguez; When: 2 - 3 days; Reason: Recheck today's complaints, Continuance of care, Re-evaluation by your physician. Problem is new. Symptoms have improved. jr8 23:02 17:50 09/05/2017 17:44 Discharged to Home. Impression: Dehydration. Condition is tl2 Stable. Discharge Instructions: Dehydration, Elderly. Forms are Medication Reconciliation Form, Thank You Letter, Antibiotic Education, Prescription Opioid Use. Follow up: Aba Rodriguez; When: 2 - 3 days; Reason: Recheck today's complaints, Continuance of care, Re-evaluation by your physician. Problem is new. Symptoms have improved. jr8
--- NOTE | 2017-09-05 17:44 | ER ---
Nurse's Notes [facility] Name: Nitza Khanna Age: 82 yrs Sex: Female : 1935 Arrival Date: 09/05/2017 Time: 13:41 Bed 13 Private MD: Aba Rodriguez E Diagnosis: Dehydration Presentation: 09/05 13:58 Presenting complaint: Patient states: HTN and dizziness started this morning. Denies sv SOB/CP. Transition of care: patient was not received from another setting of care. Onset of symptoms was September 05, 2017. Risk Assessment: Do you want to hurt yourself or someone else? Patient reports no desire to harm self or others. Care prior to arrival: None. 13:58 Method Of Arrival: Wheelchair sv 13:58 Acuity: RADHA 3 sv 15:31 Initial Sepsis Screen: Does the patient meet any 2 criteria? No. Patient's initial em sepsis screen is negative. Does the patient have a suspected source of infection? No. Patient's initial sepsis screen is negative. Historical: - Allergies: 13:59 aspirin EC; sv - Home Meds: 19:22 amlodipine 10 mg tab once daily [Active]; lisinopril 40 mg Oral tab once daily em [Active]; omeprazole 40 mg Oral cpDR 1 cap once daily [Active]; alprazolam 0.25 mg Oral tab once a day [Active]; meclizine 25 mg Oral tab 1 tab once daily [Active]; hydrochlorothiazide 12.5 mg Oral tab once daily [Active]; Lasix 20 mg Oral tab 1 tab once daily [Active]; - PMHx: 13:59 Anemia; DVT; GI Bleed; High Cholesterol; Hypertension; sv - Immunization history:: Adult Immunizations up to date. - Social history:: Smoking status: Patient uses tobacco products, smokes one-half pack cigarettes per day. - Ebola Screening: : No symptoms or risks identified at this time. Screenin:31 Abuse screen: Denies threats or abuse. Nutritional screening: No deficits noted. em Tuberculosis screening: No symptoms or risk factors identified. Fall Risk None identified. Assessment: 14:42 General: Appears in no apparent distress. comfortable, Behavior is calm, cooperative. em Pain: Denies pain. Neuro: Level of Consciousness is awake, alert, obeys commands, Oriented to person, place, time, situation, Moves all extremities. Speech is normal, Facial symmetry appears normal, Reports dizziness, Denies weakness headache. Cardiovascular: Capillary refill < 3 seconds Patient's skin is warm and dry. Respiratory: Airway is patent Respiratory effort is even, unlabored, Respiratory pattern is regular, symmetrical. GI: Abdomen is flat, Patient currently denies nausea, pain, vomiting. : No signs and/or symptoms were reported regarding the genitourinary system. EENT: No signs and/or symptoms were reported regarding the EENT system. Derm: Skin is intact, Skin is pink, warm \T\ dry. Musculoskeletal: Range of motion: intact in all extremities. 15:00 Reassessment: Patient appears in no apparent distress at this time. I agree with the iw above assessment by Jose Juan Schofield LVN. 15:34 Reassessment: Patient appears in no apparent distress at this time. Patient and/or em family updated on plan of care and expected duration. Pain level reassessed. Patient is alert, oriented x 3, equal unlabored respirations, skin warm/dry/pink. Patient denies pain at this time. 16:25 Reassessment: Patient appears in no apparent distress at this time. resting comfortably em with eyes closed, respirations even and unlabored, skin pink warm and dry. 17:30 Reassessment: ambulated to the restroom, tolerated well. em 17:35 Reassessment: Patient and/or family updated on plan of care and expected duration. Pain em level reassessed. Patient is alert, oriented x 3, equal unlabored respirations, skin warm/dry/pink. Patient states feeling better. Patient states symptoms have improved. 17:52 Reassessment: Patient appears in no apparent distress at this time. BP trending upward, em HARRY Bocanegra notified. 19:13 Reassessment: Patient appears in no apparent distress at this time. Patient and/or em family updated on plan of care and expected duration. Pain level reassessed. Patient is alert, oriented x 3, equal unlabored respirations, skin warm/dry/pink. feeling better, denies dizziness. 19:24 Reassessment: Patient appears in no apparent distress at this time. called [facility] in [facility] to get medication list. 19:31 General: Appears in no apparent distress. comfortable, Behavior is calm, cooperative, tl2 appropriate for age. General: Off going nurse reported that pt's BP has been trending up. Provider notified and new orders received. Will continue to monitor pt before discharge. Pain: Denies pain. Neuro: Level of Consciousness is awake, alert, obeys commands, Oriented to person, place, time, situation, Speech is normal, Facial symmetry appears normal, Reports Denies weakness blurred vision dizziness. Cardiovascular: Denies chest pain. Respiratory: Airway is patent Respiratory effort is even, unlabored, Respiratory pattern is regular, symmetrical. GI: No signs and/or symptoms were reported involving the gastrointestinal system. : No signs and/or symptoms were reported regarding the genitourinary system. Derm: Skin is pink, warm \T\ dry. 20:43 Reassessment: Patient appears in no apparent distress at this time. Patient and/or tl2 family updated on plan of care and expected duration. Pain level reassessed. Patient is alert, oriented x 3, equal unlabored respirations, skin warm/dry/pink. Manual BP 238/98. PA at bedside discussing plan of care. Will continue to monitor. 21:10 Reassessment: Pt IV was infiltrated before I could give Hydralazine. Unable to obtain tl2 another IV, charge nurse notified. 21:40 Reassessment: Patient appears in no apparent distress at this time. Pt states she feels tl2 okay, denies any pain. Will notify PA of new BP and will continue to monitor until cleared for discharge. 22:20 Reassessment: PA cleared pt for discharge, awaiting family to knot picker cloth pt. Pt states she tl2 is feeling better and ready to go home. 23:00 Reassessment: Patient appears in no apparent distress at this time. Patient and/or tl2 family updated on plan of care and expected duration. Pain level reassessed. Patient is alert, oriented x 3, equal unlabored respirations, skin warm/dry/pink. Pt and family verbalized understanding of discharge instructions and need for follow up Patient states feeling better. Vital Signs: 14:00 BP 98 / 53; Pulse 76; Resp 18; Temp 98.6; Pulse Ox 99% ; Weight 61.69 kg; Height 5 ft. sv 1 in. (154.94 cm); Pain 0/10; 14:42 BP 129 / 71; Resp 18; Pulse Ox 99% on R/A; Pain 0/10; em 15:11 BP 150 / 60 Supine; Pulse 60; em 15:11 BP 134 / 58 Sitting; Pulse 66; em 15:11 BP 106 / 56 Standing; Pulse 76; em 16:00 BP 183 / 64; Pulse 71; Resp 16; Pulse Ox 98% on R/A; em 16:38 BP 180 / 88; Pulse 63; em 17:54 BP 227 / 89 Supine; Pulse 61; em 17:54 BP 180 / 87 Sitting; Pulse 67; em 18:47 BP 206 / 82; Pulse 67; Resp 16; Pulse Ox 99% on R/A; Pain 0/10; em 19:00 BP 239 / 77; Pulse 58; Resp 18; Pulse Ox 98% ; tl2 19:31 BP 240 / 90; Pulse 64; Resp 18; Pulse Ox 97% on R/A; Pain 0/10; tl2 19:51 BP 226 / 82; Pulse 62; Resp 18; Pulse Ox 97% on R/A; tl2 20:06 BP 216 / 83; tl2 20:34 BP 230 / 98 RA Sitting (man/reg); jd3 20:43 BP 238 / 78; Pulse 64; Resp 18; Pulse Ox 99% on R/A; tl2 21:10 BP 224 / 81; Pulse 63; Resp 18; Pulse Ox 100% on R/A; tl2 21:40 BP 142 / 54; Pulse 65; Resp 18; Pulse Ox 98% on R/A; tl2 22:01 BP 124 / 47; Pulse 72; Resp 18; Pulse Ox 98% on R/A; tl2 22:20 BP 134 / 49; Pulse 71; Resp 18; Pulse Ox 99% on R/A; tl2 23:00 BP 141 / 58; Pulse 65; Resp 18; Pulse Ox 100% on R/A; tl2 14:00 Body Mass Index 25.70 (61.69 kg, 154.94 cm) sv ED Course: 13:41 Patient arrived in ED. mr 13:41 Aba Rodriguez MD is Private Physician. mr 13:59 Triage completed. sv 14:00 Arm band placed on right wrist. sv 14:14 Jose Juan Schofield LVN is Primary Nurse. em 14:24 Daljit Ariza PA is PHCP. jr8 14:24 Janes Sanchez MD is Attending Physician. jr8 15:00 Initial lab(s) drawn, by me, sent to lab. Inserted. Inserted saline lock: 22 gauge in mh5 right antecubital area, using aseptic technique. Blood collected. 15:31 Patient has correct armband on for positive identification. Bed in low position. Call em light in reach. Side rails up X 1. 16:26 No provider procedures requiring assistance completed. em 17:43 Aba Rodriguez MD is Referral Physician. jr8 19:00 IV is patent, with good blood return. tl2 21:35 Inserted saline lock: 20 gauge in right EJ, using aseptic technique. ,using aseptic tl2 technique. placed by HARRY Bocanegra. 23:00 IV discontinued, intact, bleeding controlled, No redness/swelling at site. Pressure tl2 dressing applied. Administered Medications: 15:19 Drug: NS 0.9% 500 ml Route: IV; Rate: bolus; Site: right antecubital; em 18:48 Follow up: IV Status: Completed infusion; IV Intake: 500ml em 15:53 Drug: NS 0.9% 500 ml Route: IV; Rate: bolus; Site: right antecubital; em 18:48 Follow up: IV Status: Completed infusion; IV Intake: 500ml em 17:57 Not Given (Physician Discretion): hydrALAZINE 10 mg IV at calculated rate once jr8 18:10 Drug: Enalaprilat 0.625 mg Route: IV; Rate: calculated rate; Site: right antecubital; sg 18:48 Follow up: Response: No adverse reaction; IV Status: Completed infusion em 19:26 Drug: Enalaprilat 0.625 mg Route: IV; Rate: calculated rate; Site: right antecubital; tl2 21:36 Follow up: Response: No adverse reaction; Blood pressure is unchanged; IV Status: tl2 Completed infusion 19:26 Drug: amLODIPine 10 mg Route: PO; tl2 21:36 Follow up: Response: No adverse reaction; Blood pressure is unchanged tl2 21:34 Drug: hydrALAZINE 20 mg Route: IV; Rate: calculated rate; Site: right jugular; tl2 23:02 Follow up: Response: Blood pressure is lowered; IV Status: Completed infusion tl2 Intake: 18:48 IV: 500ml; Total: 500ml. em 18:48 IV: 500ml; Total: 1000ml. em Outcome: 17:44 Discharge ordered by MD. narvaez 23:00 Discharged to home via wheelchair, with family. tl2 23:00 Condition: stable 23:00 Discharge instructions given to patient, family, Instructed on discharge instructions, follow up and referral plans. Demonstrated understanding of instructions, follow-up care. 23:02 Patient left the ED. tl2 Signatures: Kristy Najera, RN RN Angel Carbajal, RN Mari Aguila mr Schofield, Jose Juan, WORKERS COMPENSATION CLAIMS ADJUSTER WORKERS COMPENSATION CLAIMS ADJUSTER em Katy Hess, RN Daljit Montana PA PA jr8 Knox, Taylor, RN RN 2 Mari Sandoval [facility] Noe Worthy RN RN jd3
[2017-09-05] MEDS ORDERED: ENALAPRILAT 1.25 MG/ML VIAL IV ONE ×2 (18:02→19:24)
[2017-09-05] MEDS ORDERED: AMLODIPINE 5 MG TAB ONE (19:24)
[2017-09-05 20:42] LABS: Urine Blood TRACE (NEG); Urine Glucose NEGATIVE (NEG); Urine Protein NEGATIVE (NEG); Urine pH 5.5 (5.0-7.0)
[2017-09-05] MEDS ORDERED: HYDRALAZINE HCL 20 MG/ML VIAL ONE (20:49)
[2017-09-05 23:36] VITALS: TEMP 98.6
[2017-09-05 23:55] VITALS: BP 141/58; O2SAT 100
== END 2017-09-05 23:02 | disposition home or self-care (01) ==
LOC: ER 13:38
DX: E86.0 Dehydration (principal); I10 Essential (primary) hypertension; E78.00 Pure hypercholesterolemia, unspecified; Z86.718 Personal history of other venous thrombosis and embolism; Z72.0 Tobacco use
CPT/HCPCS: 36415; 80048; 80076; 81003; 83735; 84520; 85025; 99284; J0360

== ENCOUNTER 2018-03-11 09:35 | Emergency (ER) | payer OTHER, SELFPAY ==
[2018-03-11] MEDS ORDERED: GABAPENTIN 300 MG CAP ONE (11:33)
[2018-03-11 11:53] LABS: Absolute Lymphocytes (CBC) 1.2 K/uL (0.7-4.9); Absolute Monocytes 0.9 K/uL (0.1-1.3); Absolute Neutrophil 5.8 K/uL (1.8-8.0); Basophils % 1.2 % (0-1.3); Eosinophils % 1.2 % (0-4.4); Hematocrit 34.9 % (36.0-45.0); Lymphocytes % 14.8 % (15.3-44.8); MPV 10.8 fL (7.6-11.3); Monocytes % 10.8 % (3.3-12.3); RBC Red Blood Cell Count 5.01 M/uL (3.86-4.86)
[2018-03-11 12:04] LABS: BUN Blood Urea Nitrogen 32 mg/dL (7-18); Bicarbonate 29 mmol/L (21-32); C-Reactive Protein < 2.90 mg/L (<3.00); Glucose Level 104 mg/dL (74-106); Potassium 3.8 mmol/L (3.5-5.1); Sodium Level 143 mmol/L (136-145)
[2018-03-11 12:49] LABS: Anisocytosis 1+; Blood Morphology Comment NOTED (NOT SEEN); Platelet Estimate ADEQ
[2018-03-11] MEDS ORDERED: hydroCHLOROthiazide 25 MG TAB ONE (14:21)
[2018-03-11] MEDS ORDERED: LISINOPRIL 20 MG TAB ONE (14:21)
[2018-03-11] MEDS ORDERED: AMLODIPINE 5 MG TAB ONE (14:21)
[2018-03-11] MEDS ORDERED: METOPROLOL TAR 25 MG TAB ONE (14:21)
[2018-03-11] MEDS ORDERED: FUROSEMIDE 20 MG TABLET ONE (14:22)
--- NOTE | 2018-03-11 15:21 | EDPHYS ---
Physician Documentation [facility] Name: Nitza Khanna Age: 83 yrs Sex: Female : 1935 Arrival Date: 03/11/2018 Time: 09:39 Bed 8 Private MD: Aba Rodriguez E ED Physician Blade Lawrence HPI: 03/11 11:39 This 83 yrs old Black Female presents to ER via Wheelchair with complaints of Bilateral kdr Foot Pain and finger tips. 11:40 The patient states that for the past two months, she has had bilateral finger tip pain kdr and foot pain from the ankle down. She states that it feels like she has needles sticking up into her feet and it is very hard to walk causing her to be unsteady. 11:43 Onset: The symptoms/episode began/occurred gradually, 2 month(s) ago. Severity of kdr symptoms: At their worst the symptoms were moderate severe in the emergency department the symptoms are unchanged are worse mildly. The patient has not experienced similar symptoms in the past. The patient has not recently seen a physician. The patient states that she has smoked since she was young and now smokes about 5 cigarettes per day. Historical: - Allergies: 10:02 aspirin EC; aj1 - Home Meds: 10:02 alprazolam 0.25 mg Oral tab once a day [Active]; amlodipine 10 mg tab once daily aj1 [Active]; Effient Oral [Active]; hydrochlorothiazide 12.5 mg Oral tab once daily [Active]; Iron oral [Active]; Lasix 20 mg Oral tab 1 tab once daily [Active]; lisinopril 40 mg Oral tab once daily [Active]; meclizine 25 mg Oral tab 1 tab once daily [Active]; metoprolol tartrate 50 mg Oral tab once daily [Active]; omeprazole 40 mg Oral cpDR 1 cap once daily [Active]; pravastatin 40 mg Oral tab 1 tab once daily [Active]; simvastatin 40 mg Oral tab once daily [Active]; - PMHx: 10:02 Anemia; DVT; GI Bleed; High Cholesterol; Hypertension; aj1 - Immunization history:: Flu vaccine is not up to date. - Social history:: Smoking status: Patient uses tobacco products, 5 cigarettes per day. - Ebola Screening: : Patient denies travel to an Ebola-affected area in the 21 days before illness onset. ROS: 11:43 Constitutional: Negative for fever, chills, and weight loss, Eyes: Negative for injury, kdr pain, redness, and discharge, ENT: Negative for injury, pain, and discharge, Neck: Negative for injury, pain, and swelling, Cardiovascular: Negative for chest pain, palpitations, and edema, Respiratory: Negative for shortness of breath, cough, wheezing, and pleuritic chest pain, Abdomen/GI: Negative for abdominal pain, nausea, vomiting, diarrhea, and constipation, Back: Negative for injury and pain, : Negative for injury, bleeding, discharge, and swelling, Skin: Negative for injury, rash, and discoloration, Neuro: Negative for headache, weakness, numbness, tingling, and seizure activity. Psych: Negative for depression, anxiety, suicide ideation, homicidal ideation, and hallucinations, Allergy/Immunology: Negative for hives, rash, and allergies, Endocrine: Negative for neck swelling, polydipsia, polyuria, polyphagia, and marked weight changes, Hematologic/Lymphatic: Negative for swollen nodes, abnormal bleeding, and unusual bruising. 11:43 MS/extremity: Positive for pain, tingling, On bilateral finger tips and feet from the ankle down. Exam: 11:43 Constitutional: This is a well developed, well nourished patient who is awake, alert, kdr and in no acute distress. Head/Face: Normocephalic, atraumatic. Eyes: Pupils equal round and reactive to light, extra-ocular motions intact. Lids and lashes normal. Conjunctiva and sclera are non-icteric and not injected. Cornea within normal limits. Periorbital areas with no swelling, redness, or edema. Neck: Trachea midline, no thyromegaly or masses palpated, and no cervical lymphadenopathy. Supple, full range of motion without nuchal rigidity, or vertebral point tenderness. No Meningismus. Chest/axilla: Normal chest wall appearance and motion. Nontender with no deformity. No lesions are appreciated. Cardiovascular: Regular rate and rhythm with a normal S1 and S2. No gallops, murmurs, or rubs. Normal PMI, no JVD. No pulse deficits. Respiratory: Lungs have equal breath sounds bilaterally, clear to auscultation and percussion. No rales, rhonchi or wheezes noted. No increased work of breathing, no retractions or nasal flaring. Abdomen/GI: Soft, non-tender, with normal bowel sounds. No distension or tympany. No guarding or rebound. No evidence of tenderness throughout. Back: No spinal tenderness. No costovertebral tenderness. Full range of motion. Skin: Warm, dry with normal turgor. Normal color with no rashes, no lesions, and no evidence of cellulitis. Neuro: Awake and alert, GCS 15, oriented to person, place, time, and situation. Cranial nerves II-XII grossly intact. Motor strength 5/5 in all extremities. Sensory grossly intact. Cerebellar exam normal. Normal gait. Psych: Awake, alert, with orientation to person, place and time. Behavior, mood, and affect are within normal limits. 11:43 Skin: Finger tips and feet appear to be cool though not cyanotic. There is also no paresthesias but she has subjective c/o pain to the effected areas. The skin is otherwise normal. Vital Signs: 10:02 BP 197 / 98; Pulse 72; Resp 18; Temp 97.8; Pulse Ox 99% on R/A; Weight 61.23 kg (R); aj1 Height 5 ft. 5 in. (165.10 cm) (R); Pain 8/10; 12:35 BP 217 / 74; Pulse 60; Resp 18; Pulse Ox 100% on R/A; aj1 13:48 BP 219 / 82; Pulse 69; Resp 18; Pulse Ox 100% on R/A; aj1 14:22 BP 212 / 76; Pulse 85; Resp 18; Pulse Ox 100% on R/A; aj1 15:20 BP 192 / 74; Pulse 69; Resp 18; Pulse Ox 100% on R/A; aj1 10:02 Body Mass Index 22.46 (61.23 kg, 165.10 cm) aj1 MDM: 15:19 Patient medically screened. kdr 16:13 Data reviewed: vital signs, nurses notes, lab test result(s), radiologic studies. kdr Counseling: I had a detailed discussion with the patient and/or guardian regarding: the historical points, exam findings, and any diagnostic results supporting the discharge/admit diagnosis, lab results, the need for outpatient follow up. 03/11 11:03 Order name: CBC with Diff; Complete Time: :26 kdr 03/11 11:03 Order name: Chem 7; Complete Time: 12:36 kdr 03/11 11:03 Order name: ESR; Complete Time: 13:26 [facility] 03/11 11:03 Order name: CRP; Complete Time: 12:36 [facility] 03/11 11:06 Order name: DELFIN IFA Screen w/Reflex EDMS 03/11 12:49 Order name: Manual Differential; Complete Time: 13:26 EDMS Administered Medications: 11:03 Drug: Neurontin 300 mg Route: PO; hj 11:39 Follow up: Response: No adverse reaction hj 14:20 Drug: Metoprolol TARTRATE (Lopressor) 50 mg Route: PO; aj1 15:37 Follow up: Response: No adverse reaction aj1 14:20 Drug: amLODIPine 10 mg Route: PO; aj1 15:38 Follow up: Response: No adverse reaction aj1 14:20 Drug: Lisinopril 40 mg Route: PO; aj1 15:38 Follow up: Response: No adverse reaction aj1 14:21 Drug: Hydrochlorothiazide 12.5 mg Route: PO; aj1 15:37 Follow up: Response: No adverse reaction aj1 14:21 Drug: LaSIX 20 mg Route: PO; aj1 15:37 Follow up: Response: No adverse reaction aj1 Disposition: 03/11/18 15:19 Discharged to Home. Impression: Peripheral neuropathy. - Condition is Stable. - Discharge Instructions: Peripheral Neuropathy. - Prescriptions for Neurontin 300 mg Oral Capsule - take 1 capsule by ORAL route At bedtime; 20 capsule. - Medication Reconciliation Form, Thank You Letter form. - Follow up: Aba Rodriguez MD; When: 2 - 3 days; Reason: If symptoms return, Further diagnostic work-up, Recheck today's complaints, Continuance of care, Re-evaluation by your physician. - Problem is an ongoing problem. - Symptoms have improved. Signatures: Dispatcher [employer] EDNV Rica Olivares RN RN aj1 Blade Lawrence MD MD [facility] Inocencio Posada RN RN hj Corrections: (The following items were deleted from the chart) 15:40 15:19 03/11/2018 15:19 Discharged to Home. Impression: Peripheral neuropathy. Condition aj1 is Stable. Forms are Medication Reconciliation Form, Thank You Letter, Antibiotic Education, Prescription Opioid Use. Follow up: Aba Rodriguez; When: 2 - 3 days; Reason: If symptoms return, Further diagnostic work-up, Recheck today's complaints, Continuance of care, Re-evaluation by your physician. Problem is an ongoing problem. Symptoms have improved. kdr
--- NOTE | 2018-03-11 15:21 | ER ---
Nurse's Notes [facility] Name: Nitza Khanna Age: 83 yrs Sex: Female : 1935 Arrival Date: 03/11/2018 Time: 09:39 Bed 8 Private MD: Aba Rodriguez E Diagnosis: Peripheral neuropathy Presentation: 03/11 09:58 Presenting complaint: Patient states: "My feet feel like something's sticking in it, I aj1 can hardly walk, and my feet stay kind of cold" Reports pain in both of her feet for the past 2 months. States that she saw her doctor when the pain first started, and he put her on some vitamins but they haven't helped. Transition of care: patient was not received from another setting of care. Onset of symptoms was December 2017. Risk Assessment: Do you want to hurt yourself or someone else? Patient reports no desire to harm self or others. Initial Sepsis Screen: Does the patient meet any 2 criteria? No. Patient's initial sepsis screen is negative. Does the patient have a suspected source of infection? No. Patient's initial sepsis screen is negative. Care prior to arrival: None. 09:58 Method Of Arrival: Wheelchair aj1 09:58 Acuity: RADHA 3 aj1 Triage Assessment: 10:02 General: Appears in no apparent distress. uncomfortable, Behavior is calm, cooperative, aj1 appropriate for age. Pain: Complains of pain in right foot and left foot. Pain: Pain currently is 8 out of 10 on a pain scale. Neuro: Level of Consciousness is awake, alert, obeys commands. Cardiovascular: Patient's skin is warm and dry. Respiratory: Airway is patent Respiratory effort is even, unlabored, Respiratory pattern is regular, symmetrical. Historical: - Allergies: 10:02 aspirin EC; aj1 - Home Meds: 10:02 alprazolam 0.25 mg Oral tab once a day [Active]; amlodipine 10 mg tab once daily aj1 [Active]; Effient Oral [Active]; hydrochlorothiazide 12.5 mg Oral tab once daily [Active]; Iron oral [Active]; Lasix 20 mg Oral tab 1 tab once daily [Active]; lisinopril 40 mg Oral tab once daily [Active]; meclizine 25 mg Oral tab 1 tab once daily [Active]; metoprolol tartrate 50 mg Oral tab once daily [Active]; omeprazole 40 mg Oral cpDR 1 cap once daily [Active]; pravastatin 40 mg Oral tab 1 tab once daily [Active]; simvastatin 40 mg Oral tab once daily [Active]; - PMHx: 10:02 Anemia; DVT; GI Bleed; High Cholesterol; Hypertension; aj1 - Immunization history:: Flu vaccine is not up to date. - Social history:: Smoking status: Patient uses tobacco products, 5 cigarettes per day. - Ebola Screening: : Patient denies travel to an Ebola-affected area in the 21 days before illness onset. Screenin:00 Abuse screen: Denies threats or abuse. Denies injuries from another. Nutritional hj screening: No deficits noted. Tuberculosis screening: No symptoms or risk factors identified. Fall Risk None identified. Assessment: 12:02 General: Appears in no apparent distress. uncomfortable, Behavior is calm, cooperative, aj1 appropriate for age. Pain: Complains of pain in right foot and left foot. Neuro: Level of Consciousness is awake, alert, obeys commands, Oriented to person, place, time, situation. Cardiovascular: Patient's skin is warm and dry. Respiratory: Airway is patent Respiratory effort is even, unlabored, Respiratory pattern is regular, symmetrical. GI: No signs and/or symptoms were reported involving the gastrointestinal system. : No signs and/or symptoms were reported regarding the genitourinary system. EENT: No signs and/or symptoms were reported regarding the EENT system. Derm: Skin is pink, warm \\T\\ dry. normal. 13:30 Reassessment: Patient appears in no apparent distress at this time. No changes from aj1 previously documented assessment. Patient and/or family updated on plan of care and expected duration. Pain level reassessed. Patient is alert, oriented x 3, equal unlabored respirations, skin warm/dry/pink. 14:21 Reassessment: Patient appears in no apparent distress at this time. No changes from aj1 previously documented assessment. Patient and/or family updated on plan of care and expected duration. Pain level reassessed. Patient is alert, oriented x 3, equal unlabored respirations, skin warm/dry/pink. 15:21 Reassessment: Patient appears in no apparent distress at this time. No changes from aj1 previously documented assessment. Patient and/or family updated on plan of care and expected duration. Pain level reassessed. Patient is alert, oriented x 3, equal unlabored respirations, skin warm/dry/pink. Vital Signs: 10:02 BP 197 / 98; Pulse 72; Resp 18; Temp 97.8; Pulse Ox 99% on R/A; Weight 61.23 kg (R); aj1 Height 5 ft. 5 in. (165.10 cm) (R); Pain 8/10; 12:35 BP 217 / 74; Pulse 60; Resp 18; Pulse Ox 100% on R/A; aj1 13:48 BP 219 / 82; Pulse 69; Resp 18; Pulse Ox 100% on R/A; aj1 14:22 BP 212 / 76; Pulse 85; Resp 18; Pulse Ox 100% on R/A; aj1 15:20 BP 192 / 74; Pulse 69; Resp 18; Pulse Ox 100% on R/A; aj1 10:02 Body Mass Index 22.46 (61.23 kg, 165.10 cm) aj1 ED Course: 09:39 Patient arrived in ED. rg4 09:39 Aba Rodriguez MD is Private Physician. rg4 10:01 Triage completed. aj1 10:02 Arm band placed on Patient placed in waiting room, Patient notified of wait time. aj1 10:49 Blade Lawrence MD is Attending Physician. kdr 11:00 Patient has correct armband on for positive identification. Bed in low position. Call light in reach. Side rails up X 1. 11:32 Initial lab(s) drawn, by ut, sent to lab. Inserted saline lock: 20 gauge in right dh3 antecubital area, using aseptic technique. Blood collected. 12:01 Rica Olivares RN is Primary Nurse. aj1 12:02 Report received from ALEXIS Painter. aj1 12:02 No provider procedures requiring assistance completed. aj1 15:18 Aba Rodriguez MD is Referral Physician. kdr 15:39 IV discontinued, intact, bleeding controlled, No redness/swelling at site. Pressure aj1 dressing applied. Administered Medications: 11:03 Drug: Neurontin 300 mg Route: PO; hj 11:39 Follow up: Response: No adverse reaction hj 14:20 Drug: Metoprolol TARTRATE (Lopressor) 50 mg Route: PO; aj1 15:37 Follow up: Response: No adverse reaction aj1 14:20 Drug: amLODIPine 10 mg Route: PO; aj1 15:38 Follow up: Response: No adverse reaction aj1 14:20 Drug: Lisinopril 40 mg Route: PO; aj1 15:38 Follow up: Response: No adverse reaction aj1 14:21 Drug: Hydrochlorothiazide 12.5 mg Route: PO; aj1 15:37 Follow up: Response: No adverse reaction aj1 14:21 Drug: LaSIX 20 mg Route: PO; aj1 15:37 Follow up: Response: No adverse reaction aj1 Outcome: 15:19 Discharge ordered by . kdr 15:39 Discharged to home via wheelchair, with family. aj1 15:39 Condition: good 15:39 Discharge instructions given to patient, Instructed on discharge instructions, follow up and referral plans. medication usage, Demonstrated understanding of instructions, follow-up care, medications, Prescriptions given X 1. 15:40 Patient left the ED. aj1 Signatures: Rica Olivares RN RN aj1 Blade Lawrence MD MD kdr Joaquin, Henry, RN RN hj Garcia, Rubi 4 Gela Fuller 3
[2018-03-11 15:44] VITALS: TEMP 97.8
[2018-03-11 15:45] VITALS: O2SAT 100
[2018-03-11 15:49] VITALS: BP 192/74
== END 2018-03-11 15:40 | disposition home or self-care (01) ==
LOC: ER 09:35
DX: G62.9 Polyneuropathy, unspecified (principal); D64.9 Anemia, unspecified; E78.00 Pure hypercholesterolemia, unspecified; I10 Essential (primary) hypertension; F17.210 Nicotine dependence, cigarettes, uncomplicated; Z79.899 Other long term (current) drug therapy; Z86.718 Personal history of other venous thrombosis and embolism
CPT/HCPCS: 36415; 80048; 85025; 85652; 86038; 86140; 99284

== ENCOUNTER 2018-08-03 09:15 | Emergency (ER) | payer OTHER, SELFPAY ==
--- NOTE | 2018-08-03 11:44 | RAD REPORT ---
EXAM DESCRIPTION: US - Lower Extremity Arterial Bilat - 08/03/2018 11:08 am CLINICAL HISTORY: decrease pulses;Pain;Numbness/tingling COMPARISON: 2013 FINDINGS: Right common femoral artery patent. 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 Collaterals reconstitute right popliteal artery. Monophasic waveform No flow within right dorsalis pedis/posterior tibial artery seen Patent left common femoral artery. Most of the left superficial occluded. Diminished flow within the distal left superficial femoral/left popliteal artery with monophasic waveforms. 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 No flow within the right dorsalis pedis/posterior tibial arteries Occlusion of left superficial femoral artery with diminished flow within the distal left superficial femoral/left popliteal artery. No flow seen within the left posterior tibial/dorsalis pedis arteries
--- NOTE | 2018-08-03 13:04 | EDPHYS ---
Physician Documentation [facility] Name: Nitza Khanna Age: 83 yrs Sex: Female : 1935 Arrival Date: 08/03/2018 Time: 09:20 Bed 18 Private MD: Aba Rodriguez E ED Physician Janes Sanchez HPI: 08/03 12:00 This 83 yrs old Black Female presents to ER via Ambulatory with complaints of Foot Pain.jr8 12:00 The complaints affect the right foot and left foot. Onset: The symptoms/episode jr8 began/occurred gradually, 2 week(s) ago. Modifying factors: The symptoms are alleviated by nothing. the symptoms are aggravated by nothing. Associated signs and symptoms: The patient has no apparent associated signs or symptoms. Severity of symptoms: At their worst the symptoms were mild, in the emergency department the symptoms are unchanged. The patient has not experienced similar symptoms in the past. The patient has not recently seen a physician. Patient describes foot pain as odd tingling sensation. Noticed decreased sensation as well for the past few weeks. Denies trauma to legs. Has never had this feeling before. Denies back problems as well . Historical: - Allergies: 09:33 aspirin EC; hb - Home Meds: 09:33 alprazolam 0.25 mg Oral tab once a day [Active]; amlodipine 10 mg tab once daily hb [Active]; Effient Oral [Active]; hydrochlorothiazide 12.5 mg Oral tab once daily [Active]; Iron oral [Active]; Lasix 20 mg Oral tab 1 tab once daily [Active]; lisinopril 40 mg Oral tab once daily [Active]; meclizine 25 mg Oral tab 1 tab once daily [Active]; metoprolol tartrate 50 mg Oral tab once daily [Active]; omeprazole 40 mg oral cpDR [Active]; pravastatin 40 mg Oral tab 1 tab once daily [Active]; simvastatin 40 mg Oral tab once daily [Active]; - PMHx: 09:33 Anemia; DVT; GI Bleed; High Cholesterol; Hypertension; hb - Immunization history:: Adult Immunizations up to date. - Social history:: Smoking status: Patient/guardian denies using tobacco. - Ebola Screening: : No symptoms or risks identified at this time. ROS: 12:00 Eyes: Negative for injury, pain, redness, and discharge, ENT: Negative for injury, jr8 pain, and discharge, Neck: Negative for injury, pain, and swelling, Cardiovascular: Negative for chest pain, palpitations, and edema, Respiratory: Negative for shortness of breath, cough, wheezing, and pleuritic chest pain, Abdomen/GI: Negative for abdominal pain, nausea, vomiting, diarrhea, and constipation, Back: Negative for injury and pain, MS/Extremity: Negative for injury and deformity, Skin: Negative for injury, rash, and discoloration. 12:00 Neuro: Positive for numbness, tingling, of the right foot and left foot. Exam: 12:00 Eyes: Pupils equal round and reactive to light, extra-ocular motions intact. Lids and jr8 lashes normal. Conjunctiva and sclera are non-icteric and not injected. Cornea within normal limits. Periorbital areas with no swelling, redness, or edema. ENT: Nares patent. No nasal discharge, no septal abnormalities noted. Tympanic membranes are normal and external auditory canals are clear. Oropharynx with no redness, swelling, or masses, exudates, or evidence of obstruction, uvula midline. Mucous membranes moist. Neck: Trachea midline, no thyromegaly or masses palpated, and no cervical lymphadenopathy. Supple, full range of motion without nuchal rigidity, or vertebral point tenderness. No Meningismus. Cardiovascular: Regular rate and rhythm with a normal S1 and S2. No gallops, murmurs, or rubs. Normal PMI, no JVD. No palpable pulses to DP or PT both legs Respiratory: Lungs have equal breath sounds bilaterally, clear to auscultation and percussion. No rales, rhonchi or wheezes noted. No increased work of breathing, no retractions or nasal flaring. Abdomen/GI: Soft, non-tender, with normal bowel sounds. No distension or tympany. No guarding or rebound. No evidence of tenderness throughout. Back: No spinal tenderness. No costovertebral tenderness. Full range of motion. Skin: Warm, dry with normal turgor. Normal color with no rashes, no lesions, and no evidence of cellulitis. MS/ Extremity: Pulses equal, no cyanosis. Neurovascular intact. Full, normal range of motion. 12:00 Neuro: Orientation: to person, place, time \T\ situation. Mentation: is normal, Memory: is normal, immediate memory is intact, recent memory is intact, remote memory is intact, Cranial nerves: CN I not tested, CN II- XII are normal as tested, visual bonner are intact. extraocular movements are intact, Facial palsy and sensory deficits are absent. Speech is clear and appropriate. Tongue strength is normal, Cerebellar function: is grossly normal, Motor: moves all fours, Sensation: 2 point discrimination is decreased in the right foot and left foot, Gait: not tested. seizure activity, is not displayed by the patient, Abnormal movements: there are no abnormal movements. Vital Signs: 09:31 BP 191 / 85; Pulse 81; Resp 16; Temp 98.2; Pulse Ox 100% ; Weight 84.37 kg; Height 5 hb ft. 7 in. (170.18 cm); Pain 0/10; 10:31 BP 211 / 73; Pulse 75; Resp 18; Temp 97.9(O); Pulse Ox 98% on R/A; mh5 11:35 BP 209 / 93; Pulse 74; Resp 20; Temp 98.0(O); Pulse Ox 99% on R/A; mh5 12:23 BP 227 / 83; Pulse 73; Resp 14; Pulse Ox 99% ; bp 14:19 BP 218 / 92; Pulse 81; Resp 16; Temp 98; Pulse Ox 99% ; bp 15:29 BP 202 / 81; Pulse 81; Resp 16; Temp 98; Pulse Ox 99% ; bp 09:31 Body Mass Index 29.13 (84.37 kg, 170.18 cm) hb MDM: 09:37 Patient medically screened. jr8 13:03 Data reviewed: vital signs, nurses notes, lab test result(s), radiologic studies, jr8 ultrasound. Data interpreted: Pulse oximetry: on room air is 99 %. Interpretation: normal. Counseling: I had a detailed discussion with the patient and/or guardian regarding: the historical points, exam findings, and any diagnostic results supporting the discharge/admit diagnosis, lab results, radiology results, the need to transfer to another facility, [facility] does not immediately have the required specialist. 13:15 ED course: Dr. Landry with vascular consulted and accepted patient . ED course: Family 8 arrived and was noted that patient had previous vascular surgery about 12 years ago at [facility]. Advised her that [facility] but patient would rather just go to [facility] at this time since she has had no f/u with them in several years . 08/03 12:34 Order name: CBC with Diff [facility] 08/03 12:34 Order name: Basic Metabolic Panel; Complete Time: 13:46 [facility] 08/03 10:12 Order name: US LE Arterial Bilateral; Complete Time: 13:22 [facility] 08/03 12:34 Order name: Protime (+inr); Complete Time: 13:30 [facility] 08/03 12:34 Order name: Ptt, Activated; Complete Time: 13:30 [facility] 08/03 13:29 Order name: CBC Smear Scan [facility] 08/03 12:34 Order name: IV; Complete Time: 13:09 [facility] 08/03 13:56 Order name: Diet Ada [address]; Complete Time: 13:56 aj Administered Medications: 13:10 Drug: Labetalol 10 mg Route: IVP; Site: right antecubital; bp 13:20 Follow up: Response: Blood pressure is lowered bp 13:10 Drug: Heparin (DVT/PE Drip) 18 units/kg/hr - (HEParin 40683 units, D5W 500 ml) bp {Co-Signature: hb (Mónica Houston RN).} Route: IV; Rate: calculated rate; Site: right antecubital; 15:06 Follow up: IV Status: Infusion continued upon transfer bp 15:17 Drug: Labetalol 10 mg Route: IVP; Site: right antecubital; bp 15:17 Follow up: Response: Medication administered at discharge. bp Disposition: 17:21 Co-signature as Attending Physician, Janes Sanchez MD. rn Disposition: 08/03/18 13:[address] [facility]. Diagnosis is Acute Arterial Occlusion of Left and right lower extremities . - Reason for transfer: Higher level of care. - Accepting physician is [facility]. - Condition is Stable. - Problem is new. - Symptoms are unchanged. Signatures: Dispatcher [employer] [facility] Janes Sanchez MD MD rn Roszak, Josh, PA PA [facility] Mónica Houston RN RN hb Hasmukh Mcclelland RN RN bp Mónica Houston RN hb Corrections: (The following items were deleted from the chart) 15:08 12:00 Eyes: Pupils equal round and reactive to light, extra-ocular motions intact. Lids jr8 and lashes normal. Conjunctiva and sclera are non-icteric and not injected. Cornea within normal limits. Periorbital areas with no swelling, redness, or edema. ENT: Nares patent. No nasal discharge, no septal abnormalities noted. Tympanic membranes are normal and external auditory canals are clear. Oropharynx with no redness, swelling, or masses, exudates, or evidence of obstruction, uvula midline. Mucous membranes moist. Neck: Trachea midline, no thyromegaly or masses palpated, and no cervical lymphadenopathy. Supple, full range of motion without nuchal rigidity, or vertebral point tenderness. No Meningismus. Cardiovascular: Regular rate and rhythm with a normal S1 and S2. No gallops, murmurs, or rubs. Normal PMI, no JVD. No pulse deficits. Respiratory: Lungs have equal breath sounds bilaterally, clear to auscultation and percussion. No rales, rhonchi or wheezes noted. No increased work of breathing, no retractions or nasal flaring. Abdomen/GI: Soft, non-tender, with normal bowel sounds. No distension or tympany. No guarding or rebound. No evidence of tenderness throughout. Back: No spinal tenderness. No costovertebral tenderness. Full range of motion. Skin: Warm, dry with normal turgor. Normal color with no rashes, no lesions, and no evidence of cellulitis. MS/ Extremity: Pulses equal, no cyanosis. Neurovascular intact. Full, normal range of motion. jr8 15:30 13:03 08/03/2018 13:[address] [facility]. Diagnosis is bp Acute Arterial Occlusion of Left and right lower extremities . Reason for transfer: Higher level of care. Accepting physician is [facility]. Condition is Stable. Problem is new. Symptoms are unchanged. jr8
--- NOTE | 2018-08-03 13:04 | ER ---
Nurse's Notes [facility] Name: Nitza Khanna Age: 83 yrs Sex: Female : 1935 Arrival Date: 08/03/2018 Time: 09:20 Bed 18 Private MD: Aba Rodriguez E Diagnosis: Acute Arterial Occlusion of Left and right lower extremities Presentation: 08/03 09:29 Presenting complaint: Patient states: "My feet hurt so bad I can't walk." Reports hb bilateral foot pain x 5-6 months but denies pain at this time. Transition of care: patient was not received from another setting of care. Onset of symptoms is unknown. Risk Assessment: Do you want to hurt yourself or someone else? Patient reports no desire to harm self or others. Care prior to arrival: None. 09:29 Method Of Arrival: Ambulatory hb 09:29 Acuity: RADHA 3 hb 09:30 Initial Sepsis Screen: Does the patient meet any 2 criteria? No. Patient's initial bp sepsis screen is negative. Does the patient have a suspected source of infection? No. Patient's initial sepsis screen is negative. Triage Assessment: 09:30 General: Appears in no apparent distress. comfortable, Behavior is cooperative, bp appropriate for age, anxious. Historical: - Allergies: 09:33 aspirin EC; hb - Home Meds: 09:33 alprazolam 0.25 mg Oral tab once a day [Active]; amlodipine 10 mg tab once daily hb [Active]; Effient Oral [Active]; hydrochlorothiazide 12.5 mg Oral tab once daily [Active]; Iron oral [Active]; Lasix 20 mg Oral tab 1 tab once daily [Active]; lisinopril 40 mg Oral tab once daily [Active]; meclizine 25 mg Oral tab 1 tab once daily [Active]; metoprolol tartrate 50 mg Oral tab once daily [Active]; omeprazole 40 mg oral cpDR [Active]; pravastatin 40 mg Oral tab 1 tab once daily [Active]; simvastatin 40 mg Oral tab once daily [Active]; - PMHx: 09:33 Anemia; DVT; GI Bleed; High Cholesterol; Hypertension; hb - Immunization history:: Adult Immunizations up to date. - Social history:: Smoking status: Patient/guardian denies using tobacco. - Ebola Screening: : No symptoms or risks identified at this time. Screenin:32 Abuse screen: Denies threats or abuse. Denies injuries from another. Nutritional bp screening: No deficits noted. Tuberculosis screening: No symptoms or risk factors identified. Fall Risk None identified. Assessment: 09:31 General: Appears in no apparent distress. comfortable, Behavior is cooperative, bp appropriate for age, anxious, PT STATES NON-AMBULATORY, BUT NOTED TO AMBULATE FROM VEHICLE. Pain: Complains of pain in left foot. Neuro: Level of Consciousness is awake, alert, obeys commands, Oriented to person, place, time, situation, Appropriate for age. Cardiovascular: No deficits noted. Respiratory: No deficits noted. GI: No signs and/or symptoms were reported involving the gastrointestinal system. : No signs and/or symptoms were reported regarding the genitourinary system. EENT: No deficits noted. Derm: No deficits noted. Musculoskeletal: Circulation, motion, and sensation intact. Range of motion: intact in all extremities. 10:30 Reassessment: U/S AT [facility] FOR VENOUS DOPPLER. bp 12:25 Reassessment: ALL CURRENT ORDERS COMPLETED, DOPPLER RESULTS PENDING. bp 13:00 Reassessment: TRANSFER PENDING, PT REMAINS HYPERTENSIVE ON MONITOR. bp 14:00 Reassessment: TRANSFER IN PROCESS FOR VASCULAR AT [facility], PT REMAINS HYPERTENSIVE ON bp MONITOR. 15:18 Reassessment: EMS AT [facility] FOR TRANSPORT. REPORT TO MELA ESPINOZA FOR 7 SOUTH 2 BED 10, [facility]. Vital Signs: 09:31 BP 191 / 85; Pulse 81; Resp 16; Temp 98.2; Pulse Ox 100% ; Weight 84.37 kg; Height 5 hb ft. 7 in. (170.18 cm); Pain 0/10; 10:31 BP 211 / 73; Pulse 75; Resp 18; Temp 97.9(O); Pulse Ox 98% on R/A; mh5 11:35 BP 209 / 93; Pulse 74; Resp 20; Temp 98.0(O); Pulse Ox 99% on R/A; mh5 12:23 BP 227 / 83; Pulse 73; Resp 14; Pulse Ox 99% ; bp 14:19 BP 218 / 92; Pulse 81; Resp 16; Temp 98; Pulse Ox 99% ; bp 15:29 BP 202 / 81; Pulse 81; Resp 16; Temp 98; Pulse Ox 99% ; bp 09:31 Body Mass Index 29.13 (84.37 kg, 170.18 cm) hb ED Course: 09:20 Patient arrived in ED. as 09:20 Aba Rodriguez MD is Private Physician. as 09:31 Triage completed. hb 09:31 Hasmukh Mcclelland, RN is Primary Nurse. bp 09:31 Arm band placed on. hb 09:32 Patient has correct armband on for positive identification. Bed in low position. Call bp light in reach. Side rails up X2. Adult w/ patient. 09:36 Daljit Ariza PA is PHCP. jr8 09:37 Janes Sanchez MD is Attending Physician. jr8 10:51 US LE Arterial Bilateral In Process Unspecified. EDMS 13:00 Inserted saline lock: 20 gauge in right antecubital area, using aseptic technique. bp Blood collected. 14:51 Feliciano cath inserted, using sterile technique, 16 Fr., by ny, balloon inflated, returned hb clear yellow urine. Patient tolerated well. 15:30 No provider procedures requiring assistance completed. Patient transferred, IV remains bp in place. Administered Medications: 13:10 Drug: Labetalol 10 mg Route: IVP; Site: right antecubital; bp 13:20 Follow up: Response: Blood pressure is lowered bp 13:10 Drug: Heparin (DVT/PE Drip) 18 units/kg/hr - (HEParin 82552 units, D5W 500 ml) bp {Co-Signature: rancho (Mónica Houston RN).} Route: IV; Rate: calculated rate; Site: right antecubital; 15:06 Follow up: IV Status: Infusion continued upon transfer bp 15:17 Drug: Labetalol 10 mg Route: IVP; Site: right antecubital; bp 15:17 Follow up: Response: Medication administered at discharge. bp Outcome: 13:03 ER care complete, transfer ordered by . brice 15:29 Transferred by ground EMS to [facility], Transfer form completed. bp 15:29 Condition: stable 15:29 Instructed on the need for transfer. 15:30 Patient left the ED. bp Signatures: Dispatcher [employer] [facility] Delaney Sandoval as Daljit Ariza PA PA jr8 Baxter, Heather, RN RN hb Mari Sandoval [facility] Hasmukh Mcclelland RN RN Mónica Houston RN hb Corrections: (The following items were deleted from the chart) :34 09:29 Acuity: RADHA 3 hb hb 12:18 09:29 Acuity: RADHA 4 hb hb
[2018-08-03] MEDS ORDERED: HEPARIN/D5W 25,000 UNIT/500 ML BAG IV ONE (13:20)
[2018-08-03] MEDS ORDERED: LABETALOL 20 MG/4ML SYRINGE IV ONE ×2 (13:20→15:28)
[2018-08-03 13:27] LABS: Absolute Lymphocytes (CBC) 1.4 K/uL (0.7-4.9); Absolute Monocytes 0.7 K/uL (0.1-1.3); Absolute Neutrophil 6.2 K/uL (1.8-8.0); Basophils % 0.9 % (0-1.3); Eosinophils % 1.6 % (0-4.4); Hematocrit 35.8 % (36.0-45.0); Lymphocytes % 16.8 % (15.3-44.8); MPV 9.6 fL (7.6-11.3); Monocytes % 8.3 % (3.3-12.3); RBC Red Blood Cell Count 5.26 M/uL (3.86-4.86)
[2018-08-03 13:28] LABS: Protime INR 1.01
[2018-08-03 13:33] LABS: Potassium 4.2 mmol/L (3.5-5.1)
[2018-08-03 15:47] VITALS: O2SAT 99
[2018-08-03 15:49] VITALS: TEMP 98
[2018-08-03 15:51] VITALS: BP 202/81
[2018-08-03 15:58] LABS: Blood Morphology Comment NOTED (NOT SEEN); Platelet Estimate ADEQ; Urine White Blood Cell Casts OK
== END 2018-08-03 15:30 | disposition short-term general hospital (02) ==
LOC: ER 09:15
DX: I77.1 Stricture of artery (principal); D64.9 Anemia, unspecified; E78.00 Pure hypercholesterolemia, unspecified; I10 Essential (primary) hypertension
CPT/HCPCS: 36415; 51702; 80048; 85025; 85610; 85730; 93925; 96365; 96366; 96375; 99285

== ENCOUNTER 2019-02-23 13:44 | Emergency (ER) | payer OTHER ==
--- OUTSIDE RECORDS SUMMARY | 2019-02-23 13:46 | XMS REPORT ---
:1935 Author Organization [facility] Address [address] [place] [address] Care Team Providers Name Role Phone ZAN FERNANDEZ Unavailable Unavailable Problems This patient has no known problems. Allergies, Adverse Reactions, Alerts This patient has no known allergies or adverse reactions. Medications This patient has no known medications. Results Test Description Test Time Test Comments Text Results Atomic Results Result Comments HEMOGLOBIN A1C 2018-08-04 18:55:00 Test Item Value Reference Range Comments HEMOGLOBIN A1C (BEAKER) (test anpx=008) 6.0 % 4.3-6.1 POSSIBLE HEMOGLOBIN C VARIANT NOTED IN HEMOGLOBIN A1C CHROMATOGRAPH. SUGGEST HEMOGLOBIN ELECTROPHORESIS IF CLINICALLY INDICATED.TROPONIN [id number] 09:10:00 Test Item Value Reference Range Comments TROPONIN I (BEAKER) (test pokx=018) < ng/mL 0.00-0.03 Troponin I (TnI) levels must be interpreted in the context of the presenting symptoms and the clinical findings. Elevated TnI levels indicate myocardial damage, but are not specific for ischemic heart disease. Elevated TnI levels are seen in patients with other cardiac conditions (including myocarditis and congestive heart failure), and slight TnI elevations occur in patients with other conditions, including sepsis, renal failure, acidosis, acute neurological disease, and persistent tachyarrhythmia.[id number] 08:58:00 Test Item Value Reference Range Comments PARTIAL THROMBOPLASTIN TIME (BEAKER) (test 144.1 seconds 22.5-36.0 bmqy=953) CBC W/PLT COUNT & AUTO [id number] 07:04:00 Test Item Value Reference Range Comments WHITE BLOOD CELL COUNT (BEAKER) (test yqgs=145) 9.8 K/ L 3.5-10.5 RED BLOOD CELL COUNT (BEAKER) (test ctnv=116) 4.61 M/ L 3.93-5.22 HEMOGLOBIN (BEAKER) (test xvjv=660) 10.2 GM/DL 11.2-15.7 HEMATOCRIT (BEAKER) (test izua=168) 30.8 % 34.1-44.9 MEAN CORPUSCULAR VOLUME (BEAKER) (test fwjv=816) 66.8 fL 79.4-94.8 MEAN CORPUSCULAR HEMOGLOBIN (BEAKER) (test 22.1 pg 25.6-32.2 rcsh=549) MEAN CORPUSCULAR HEMOGLOBIN CONC (BEAKER) (test 33.1 GM/DL 32.2-35.5 tuyk=849) RED CELL DISTRIBUTION WIDTH (BEAKER) (test 16.3 % 11.7-14.4 fafw=603) PLATELET COUNT (BEAKER) (test lnkn=826) 173 K/CU MM 150-450 MEAN PLATELET VOLUME (BEAKER) (test rfio=468) 11.7 fL 9.4-12.3 NUCLEATED RED BLOOD CELLS (BEAKER) (test 0 /100 WBC 0-0 paxn=301) NEUTROPHILS RELATIVE PERCENT (BEAKER) (test 73 % mdve=753) LYMPHOCYTES RELATIVE PERCENT (BEAKER) (test 13 % blaa=294) MONOCYTES RELATIVE PERCENT (BEAKER) (test 11 % xbpg=388) EOSINOPHILS RELATIVE PERCENT (BEAKER) (test 2 % nspf=691) BASOPHILS RELATIVE PERCENT (BEAKER) (test 1 % csjv=389) NEUTROPHILS ABSOLUTE COUNT (BEAKER) (test 7.17 K/ L 1.56-6.13 plfw=132) LYMPHOCYTES ABSOLUTE COUNT (BEAKER) (test 1.28 K/ L 1.18-3.74 vaew=812) MONOCYTES ABSOLUTE COUNT (BEAKER) (test 1.07 K/ L 0.24-0.36 xiup=329) EOSINOPHILS ABSOLUTE COUNT (BEAKER) (test 0.19 K/ L 0.04-0.36 snvb=589) BASOPHILS ABSOLUTE COUNT (BEAKER) (test 0.06 K/ L 0.01-0.08 tqjj=826) IMMATURE GRANULOCYTES-RELATIVE PERCENT (BEAKER) 0 % 0-1 (test hpqz=0168) [id number] 07:03:00 Test Item Value Reference Range Comments MAGNESIUM (BEAKER) (test bngm=905) 3.1 mg/dL 1.6-2.6 BASIC METABOLIC [id number] 07:03:00 Test Item Value Reference Range Comments SODIUM (BEAKER) (test 141 meq/L 136-145 zvvs=972) POTASSIUM (BEAKER) (test 3.6 meq/L 3.5-5.1 qcww=958) CHLORIDE (BEAKER) (test 108 meq/L 98-107 coxg=108) CO2 (BEAKER) (test 25 meq/L 22-29 jxsp=835) BLOOD UREA NITROGEN 36 mg/dL 7-21 (BEAKER) (test qghc=664) CREATININE (BEAKER) (test 1.72 mg/dL 0.57-1.25 accv=280) GLUCOSE RANDOM (BEAKER) 108 mg/dL 70-105 (test blkz=579) CALCIUM (BEAKER) (test 8.9 mg/dL 8.4-10.2 uyjy=104) EGFR (BEAKER) (test 34 mL/min/1.73 sq m ESTIMATED GFR IS NOT ulzk=4773) ACCURATE CREATININE CLEARANCE IN PREDICTING GLOMERULAR FILTRATION RATE. ESTIMATED GFR IS NOT APPLICABLE FOR DIALYSIS PATIENTS. [id number] 02:55:00 Test Item Value Reference Range Comments PARTIAL THROMBOPLASTIN TIME (BEAKER) (test 104.5 seconds 22.5-36.0 thgh=082) [id number] 01:16:00 Test Item Value Reference Range Comments PARTIAL THROMBOPLASTIN TIME (BEAKER) (test > seconds 22.5-36.0 jutw=218) TROPONIN [id number] 01:07:00 Test Item Value Reference Range Comments TROPONIN I (BEAKER) (test nyqe=687) < ng/mL 0.00-0.03 Troponin I (TnI) levels must be interpreted in the context of the presenting symptoms and the clinical findings. Elevated TnI levels indicate myocardial damage, but are not specific for ischemic heart disease. Elevated TnI levels are seen in patients with other cardiac conditions (including myocarditis and congestive heart failure), and slight TnI elevations occur in patients with other conditions, including sepsis, renal failure, acidosis, acute neurological disease, and persistent tachyarrhythmia.[id number] 23:20:00 Test Item Value Reference Range Comments MAGNESIUM (BEAKER) (test vkat=958) 1.5 mg/dL 1.6-2.6 TROPONIN [id number] 21:24:00 Test Item Value Reference Range Comments TROPONIN I (BEAKER) (test tpvn=838) < ng/mL 0.00-0.03 Troponin I (TnI) levels must be interpreted in the context of the presenting symptoms and the clinical findings. Elevated TnI levels indicate myocardial damage, but are not specific for ischemic heart disease. Elevated TnI levels are seen in patients with other cardiac conditions (including myocarditis and congestive heart failure), and slight TnI elevations occur in patients with other conditions, including sepsis, renal failure, acidosis, acute neurological disease, and persistent tachyarrhythmia.[id number] 21:18:00 Test Item Value Reference Range Comments PARTIAL THROMBOPLASTIN TIME (BEAKER) (test 189.3 seconds 22.5-36.0 drlf=979) COMPREHENSIVE METABOLIC [id number] 21:18:00 Test Item Value Reference Range Comments TOTAL PROTEIN (BEAKER) 6.0 gm/dL 6.0-8.3 (test qkwz=680) ALBUMIN (BEAKER) (test 3.3 g/dL 3.5-5.0 nbug=0624) ALKALINE PHOSPHATASE 88 U/L 40-150 (BEAKER) (test btka=123) BILIRUBIN TOTAL (BEAKER) 0.3 mg/dL 0.2-1.2 (test yzzx=741) SODIUM (BEAKER) (test 143 meq/L 136-145 drch=010) POTASSIUM (BEAKER) (test 3.5 meq/L 3.5-5.1 rypv=548) CHLORIDE (BEAKER) (test 110 meq/L 98-107 mmaz=266) CO2 (BEAKER) (test 23 meq/L 22-29 revc=447) BLOOD UREA NITROGEN 38 mg/dL 7-21 (BEAKER) (test ipdr=458) CREATININE (BEAKER) (test 1.86 mg/dL 0.57-1.25 dyra=902) GLUCOSE RANDOM (BEAKER) 177 mg/dL 70-105 (test fara=788) CALCIUM (BEAKER) (test 8.8 mg/dL 8.4-10.2 brcs=752) AST (SGOT) (BEAKER) (test 17 U/L 5-34 hzod=738) ALT (SGPT) (BEAKER) (test 17 U/L 6-55 yqow=066) EGFR (BEAKER) (test 31 mL/min/1.73 sq m ESTIMATED GFR IS NOT lthd=5719) ACCURATE CREATININE CLEARANCE IN PREDICTING GLOMERULAR FILTRATION RATE. ESTIMATED GFR IS NOT APPLICABLE FOR DIALYSIS PATIENTS. [id number] 21:07:00 Test Item Value Reference Range Comments FIBRINOGEN LEVEL (BEAKER) (test yubk=237) 284 mg/dl 225-434 PROTHROMBIN TIME/[id number] 21:06:00 Test Item Value Reference Range Comments PROTIME (BEAKER) (test ebgw=138) 14.4 seconds 11.7-14.7 INR (BEAKER) (test wuks=601) 1.2 <=5.9 RECOMMENDED COUMADIN/WARFARIN INR THERAPY RANGESSTANDARD DOSE: 2.0 - 3.0 Includes: PROPHYLAXIS forvenous thrombosis, systemic embolization; TREATMENT for venous thrombosis and/or pulmonary embolus.HIGH RISK: Target INR is 2.5-3.5 for patients with mechanical heart valves.CBC W/PLT COUNT & AUTO [id number] 21:01:00 Test Item Value Reference Range Comments WHITE BLOOD CELL COUNT 8.9 K/ L 3.5-10.5 (BEAKER) (test gbpi=336) RED BLOOD CELL COUNT (BEAKER) 4.46 M/ L 3.93-5.22 (test ixvi=299) HEMOGLOBIN (BEAKER) (test 9.8 GM/DL 11.2-15.7 vioc=426) HEMATOCRIT (BEAKER) (test 30.2 % 34.1-44.9 zppw=054) MEAN CORPUSCULAR VOLUME 67.7 fL 79.4-94.8 (BEAKER) (test kezi=130) MEAN CORPUSCULAR HEMOGLOBIN 22.0 pg 25.6-32.2 (BEAKER) (test cvwk=068) MEAN CORPUSCULAR HEMOGLOBIN 32.5 GM/DL 32.2-35.5 CONC (BEAKER) (test daln=146) RED CELL DISTRIBUTION WIDTH 16.2 % 11.7-14.4 (BEAKER) (test vuxh=917) PLATELET COUNT (BEAKER) (test 168 K/CU MM 150-450 ifyz=920) MEAN PLATELET VOLUME (BEAKER) fL 9.4-12.3 Unable to report due to (test strn=689) abnormal Platelet population distribution. NUCLEATED RED BLOOD CELLS 0 /100 WBC 0-0 (BEAKER) (test psft=889) NEUTROPHILS RELATIVE PERCENT 74 % (BEAKER) (test gqnw=672) LYMPHOCYTES RELATIVE PERCENT 14 % (BEAKER) (test inxq=408) MONOCYTES RELATIVE PERCENT 10 % (BEAKER) (test vzpq=142) EOSINOPHILS RELATIVE PERCENT 2 % (BEAKER) (test guec=161) BASOPHILS RELATIVE PERCENT 1 % (BEAKER) (test rceb=701) NEUTROPHILS ABSOLUTE COUNT 6.58 K/ L 1.56-6.13 (BEAKER) (test tppo=578) LYMPHOCYTES ABSOLUTE COUNT 1.22 K/ L 1.18-3.74 (BEAKER) (test gtdl=539) MONOCYTES ABSOLUTE COUNT 0.85 K/ L 0.24-0.36 (BEAKER) (test dwbj=567) EOSINOPHILS ABSOLUTE COUNT 0.19 K/ L 0.04-0.36 (BEAKER) (test lpii=961) BASOPHILS ABSOLUTE COUNT 0.05 K/ L 0.01-0.08 (BEAKER) (test gqwa=825) IMMATURE GRANULOCYTES-RELATIVE 0 % 0-1 PERCENT (BEAKER) (test zlkt=7107) RAD, CHEST, 1 VIEW, NON [id number] 20:34:00Reason for exam:->new admissionShould this be performed at the bedside?->YesFINAL REPORT INDICATION: new admission COMPARISON: None TECHNIQUE: Single frontal view of the chest. FINDINGS: Lungs and pleura: Clear lungs. No effusion.Heart and mediastinum: Normal heart size. Atherosclerotic calcification of the aortaOsseous structures: No acute abnormality.Other: None. IMPRESSION: No acute intrathoracic abnormality. Signed: Wilmar Suarez MDReport Verified Date/Time: 08/03/2018 20:34:40 Reading Location: [address] Neuro Reading Room
--- NOTE | 2019-02-23 14:30 | EDPHYS ---
Physician Documentation [facility] Name: Nitza Khanna Age: 84 yrs Sex: Female : 1935 Arrival Date: 02/23/2019 Time: 13:47 Bed 4 Private MD: Aba Rodriguez E ED Physician Stephan Garcia HPI: 02/23 14:16 This 84 yrs old Black Female presents to ER via Wheelchair with complaints of Blurred ps1 Vision, High Blood Pressure, Dizziness. 14:16 Patient was seen and evaluated for same and has no new complaints. She was seen at [address], MRI negative and sent home with reevaluation with Dr. Rodriguez. She states that she was started on Hydralazine and has 4 other BP medications. She states that she went to his office and stated that she had blurry vision (has been going on for several weeks) and was sent to the emergency department for further evaluation without evaluation by private vehicle. Her BP reportedly this morning was > 200 systolic per family. She was 135 systolic on arrival here. No new symptoms. . Historical: - Allergies: 13:57 aspirin EC; sv - PMHx: 13:57 Anemia; GI Bleed; DVT; High Cholesterol; Hypertension; sv - Immunization history:: Adult Immunizations up to date. - Social history:: Smoking status: unknown. - Ebola Screening: : Patient denies travel to an Ebola-affected area in the 21 days before illness onset. ROS: 14:16 Constitutional: Negative for fever, chills, and weight loss. ps1 14:16 Neck: Negative for injury, pain, and swelling, Cardiovascular: Negative for chest pain, palpitations, and edema, Respiratory: Negative for shortness of breath, cough, wheezing, and pleuritic chest pain, Abdomen/GI: Negative for abdominal pain, nausea, vomiting, diarrhea, and constipation, MS/Extremity: Negative for injury and deformity. 14:16 Eyes: Positive for blurry vision. 14:16 MS/extremity: Positive for tingling, of the right leg and left leg, (ongoing for years). Exam: 14:16 Constitutional: This is a well developed, well nourished patient who is awake, alert, ps1 and in no acute distress. Head/Face: Normocephalic, atraumatic. Eyes: Pupils equal round and reactive to light, extra-ocular motions intact. Lids and lashes normal. Conjunctiva and sclera are non-icteric and not injected. Chest/axilla: Normal chest wall appearance and motion. Nontender with no deformity. No lesions are appreciated. Cardiovascular: Regular rate and rhythm. No gallops, murmurs, or rubs. Normal PMI, no JVD. No pulse deficits. Respiratory: Lungs have equal breath sounds bilaterally, clear to auscultation and percussion. No rales, rhonchi or wheezes noted. No increased work of breathing, no retractions or nasal flaring. Abdomen/GI: Soft, non-tender, with normal bowel sounds. No distension or tympany. No guarding or rebound. No evidence of tenderness throughout. MS/ Extremity: Pulses equal, no cyanosis. Neurovascular intact. Full, normal range of motion. Neuro: Awake and alert, GCS 15, oriented to person, place, time, and situation. Cranial nerves II-XII grossly intact. Sensory grossly intact. Vital Signs: 13:57 BP 135 / 126; Pulse 84; Resp 16; Temp 97.5; Pulse Ox 95% ; sv 14:57 BP 196 / 92; Pulse 88; Resp 18; Pulse Ox 99% on R/A; aj1 MDM: 14:16 Data reviewed: vital signs, nurses notes, and as a result, I will discharge patient. ps1 Counseling: I had a detailed discussion with the patient and/or guardian regarding: the historical points, exam findings, and any diagnostic results supporting the discharge/admit diagnosis, the presence of at least one elevated blood pressure reading (>120/80) during this emergency department visit, the need for outpatient follow up, to return to the emergency department if symptoms worsen or persist or if there are any questions or concerns that arise at home, Patient has hypertension that needs better control and further workup with carotid US. Her symptoms did not meet the criteria for symptomatic HTN as she did not have focal neurologic deficit within 8 hours of symptom onset. She did not have chest pain, shortness of breath. She has paresthesia that has been going on for years. Recent MRI with no stroke. No indication for emergent BP lowering intervention as her systolic is now 138 and improving and without new symptoms associated with BP. Patient was given return precautions and discussed reasons to come to the ED for elevated BP. Her primary care physician needs to address her BP issues or consult appropriately if not able to manage. . 14:29 Patient medically screened. ps1 Administered Medications: No medications were administered Disposition: 02/23/19 14:29 Discharged to Home. Impression: Established hypertension, Blurry vision. - Condition is Stable. - Discharge Instructions: Hypertension, Managing Your Hypertension. - Medication Reconciliation Form, Thank You Letter, Antibiotic Education, Prescription Opioid Use form. - Follow up: Aba Rodriguez MD; When: 48 Hours; Reason: Further diagnostic work-up, Recheck today's complaints, Continuance of care, Re-evaluation by your physician. Follow up: Emergency Department; When: As needed; Reason: Trouble breathing, Worsening of condition, new symptoms that did not exist prior to your last evaluation. . - Problem is chronic. - Symptoms are unchanged. Signatures: Rica Olivares RN RN aj1 Kristy Najera RN RN sv Stephan Garcia MD MD ps1 Corrections: (The following items were deleted from the chart) 14:59 14:29 02/23/2019 14:29 Discharged to Home. Impression: Established hypertension; Blurry aj1 vision. Condition is Stable. Forms are Medication Reconciliation Form, Thank You Letter, Antibiotic Education, Prescription Opioid Use. Follow up: Aba Rodriguez; When: 48 Hours; Reason: Further diagnostic work-up, Recheck today's complaints, Continuance of care, Re-evaluation by your physician. Follow up: Emergency Department; When: As needed; Reason: Trouble breathing, Worsening of condition, new symptoms that did not exist prior to your last evaluation. . Problem is chronic. Symptoms are unchanged. ps1
--- NOTE | 2019-02-23 14:30 | ER ---
Nurse's Notes [facility] Name: Nitza Khanna Age: 84 yrs Sex: Female : 1935 Arrival Date: 02/23/2019 Time: 13:47 Bed 4 Private MD: Aba Rodriguez E Diagnosis: Established hypertension;Blurry vision Presentation: 02/23 13:55 Presenting complaint: Patient states: HTN, blurry vision, dizziness that has been going sv on for weeks. Was seen at [facility] and told to f/u with PCP, f/u with Dr Rodriguez and he added Hydralazine TID which she has taken 1 days worth of pills. Transition of care: patient was not received from another setting of care. Onset of symptoms was January 2019. Risk Assessment: Do you want to hurt yourself or someone else? Patient reports no desire to harm self or others. Initial Sepsis Screen: Does the patient meet any 2 criteria? No. Patient's initial sepsis screen is negative. Does the patient have a suspected source of infection? No. Patient's initial sepsis screen is negative. Care prior to arrival: None. 13:55 Method Of Arrival: Wheelchair sv 13:55 Acuity: RADHA 3 sv Historical: - Allergies: 13:57 aspirin EC; sv - PMHx: 13:57 Anemia; GI Bleed; DVT; High Cholesterol; Hypertension; sv - Immunization history:: Adult Immunizations up to date. - Social history:: Smoking status: unknown. - Ebola Screening: : Patient denies travel to an Ebola-affected area in the 21 days before illness onset. Screenin:19 Abuse screen: Denies threats or abuse. Denies injuries from another. Nutritional aj1 screening: No deficits noted. Tuberculosis screening: No symptoms or risk factors identified. 14:59 Fall Risk None identified. aj1 Assessment: 14:19 General: Appears in no apparent distress. comfortable, Behavior is calm, cooperative, aj1 appropriate for age. Pain: Denies pain. Neuro: Level of Consciousness is awake, alert, obeys commands, Oriented to person, place, time, situation, Pattern Chart Writer are equal bilaterally Moves all extremities. Speech is normal, Facial symmetry appears normal, Reports blurred vision dizziness, weakness to bilateral arms arms and legs. Patient denies any unilateral weakness Denies paresthesias numbness. Cardiovascular: Patient's skin is warm and dry. Respiratory: Airway is patent Respiratory effort is even, unlabored, Respiratory pattern is regular, symmetrical. GI: No signs and/or symptoms were reported involving the gastrointestinal system. : No signs and/or symptoms were reported regarding the genitourinary system. EENT: No signs and/or symptoms were reported regarding the EENT system. Derm: No signs and/or symptoms reported regarding the dermatologic system. Skin is normal. Musculoskeletal: No signs and/or symptoms reported regarding the musculoskeletal system. Circulation, motion, and sensation intact. 14:57 Reassessment: Notified Dr. Garcia of patient's blood pressure, okay to discharge aj1 patient. [facility], keep log of blood pressures. Vital Signs: 13:57 BP 135 / 126; Pulse 84; Resp 16; Temp 97.5; Pulse Ox 95% ; sv 14:57 BP 196 / 92; Pulse 88; Resp 18; Pulse Ox 99% on R/A; aj1 ED Course: 13:47 Patient arrived in ED. mr 13:47 Aba Rodriguez MD is Private Physician. mr 13:51 Stephan Garcia MD is Attending Physician. ps1 13:56 Triage completed. sv 13:57 Arm band placed on. sv 14:19 Rica Olivares RN is Primary Nurse. aj1 14:19 Patient has correct armband on for positive identification. Bed in low position. Call aj1 light in reach. Side rails up X 1. 14:19 No provider procedures requiring assistance completed. aj1 14:27 Aba Rodriguez MD is Referral Physician. ps1 14:59 Patient did not have IV access during this emergency room visit. aj1 Administered Medications: No medications were administered Outcome: 14:29 Discharge ordered by . ps1 14:59 Discharged to home via wheelchair. aj1 14:59 Condition: good 14:59 Discharge instructions given to patient, Instructed on discharge instructions, follow up and referral plans. Demonstrated understanding of instructions, follow-up care. 14:59 Patient left the ED. aj1 Signatures: Rica Olivares RN RN ajKristy Hung RN RN sv RiveraNirali mr Stephan Garcia MD MD ps1
[2019-02-23 18:18] VITALS: BP 196/92; O2SAT 99
[2019-02-23 18:20] VITALS: TEMP 97.5
== END 2019-02-23 14:59 | disposition home or self-care (01) ==
LOC: ER 13:44
DX: I10 Essential (primary) hypertension (principal)
CPT/HCPCS: 99281

== ENCOUNTER 2019-03-25 13:19 | Observation (INO) | payer OTHER ==
--- OUTSIDE RECORDS SUMMARY | 2019-03-25 13:21 | XMS REPORT ---
:1935 [facility] Address [address] [place] [id number] Care Team Providers Name Role Phone ZAN [...] Reference Range Comments HEMOGLOBIN A1C (BEAKER) (test gbml=599) 6.0 % 4.3-6.1 POSSIBLE HEMOGLOBIN C VARIANT NOTED IN HEMOGLOBIN A1C CHROMATOGRAPH. SUGGEST HEMOGLOBIN ELECTROPHORESIS IF CLINICALLY INDICATED.TROPONIN [id number] 09:10:00 Test Item Value Reference Range Comments TROPONIN I (BEAKER) (test vica=273) < ng/mL 0.00-0.03 Troponin I (TnI) levels [...] failure, acidosis, acute neurological disease, and persistent tachyarrhythmia.[id number] 08:58:00 Test Item Value Reference Range Comments PARTIAL THROMBOPLASTIN TIME (BEAKER) (test 144.1 seconds 22.5-36.0 ntdz=391) CBC W/PLT COUNT & AUTO [id number] 07:04:00 Test Item Value Reference Range Comments WHITE BLOOD CELL COUNT (BEAKER) (test stah=461) 9.8 K/ L 3.5-10.5 RED BLOOD CELL COUNT (BEAKER) (test hvyc=133) 4.61 M/ L 3.93-5.22 HEMOGLOBIN (BEAKER) (test wytn=773) 10.2 GM/DL 11.2-15.7 HEMATOCRIT (BEAKER) (test afnj=277) 30.8 % 34.1-44.9 MEAN CORPUSCULAR VOLUME (BEAKER) (test mnyi=852) 66.8 fL 79.4-94.8 MEAN CORPUSCULAR HEMOGLOBIN (BEAKER) (test 22.1 pg 25.6-32.2 msfd=604) MEAN CORPUSCULAR HEMOGLOBIN CONC (BEAKER) (test 33.1 GM/DL 32.2-35.5 tmdm=105) RED CELL DISTRIBUTION WIDTH (BEAKER) (test 16.3 % 11.7-14.4 nbmd=037) PLATELET COUNT (BEAKER) (test gzxi=700) 173 K/CU MM 150-450 MEAN PLATELET VOLUME (BEAKER) (test vpmx=525) 11.7 fL 9.4-12.3 NUCLEATED RED BLOOD CELLS (BEAKER) (test 0 /100 WBC 0-0 dgmf=269) NEUTROPHILS RELATIVE PERCENT (BEAKER) (test 73 % nxdp=426) LYMPHOCYTES RELATIVE PERCENT (BEAKER) (test 13 % svey=743) MONOCYTES RELATIVE PERCENT (BEAKER) (test 11 % xpan=436) EOSINOPHILS RELATIVE PERCENT (BEAKER) (test 2 % jmuo=473) BASOPHILS RELATIVE PERCENT (BEAKER) (test 1 % dbjw=470) NEUTROPHILS ABSOLUTE COUNT (BEAKER) (test 7.17 K/ L 1.56-6.13 ioqs=937) LYMPHOCYTES ABSOLUTE COUNT (BEAKER) (test 1.28 K/ L 1.18-3.74 rgsf=534) MONOCYTES ABSOLUTE COUNT (BEAKER) (test 1.07 K/ L 0.24-0.36 uilx=428) EOSINOPHILS ABSOLUTE COUNT (BEAKER) (test 0.19 K/ L 0.04-0.36 xsoo=976) BASOPHILS ABSOLUTE COUNT (BEAKER) (test 0.06 K/ L 0.01-0.08 tbnb=823) IMMATURE GRANULOCYTES-RELATIVE PERCENT (BEAKER) 0 % 0-1 (test cklt=3448) [id number] 07:03:00 Test Item Value Reference Range Comments MAGNESIUM (BEAKER) (test xqrn=707) 3.1 mg/dL 1.6-2.6 BASIC METABOLIC [id number] 07:03:00 Test Item Value Reference Range Comments SODIUM (BEAKER) (test 141 meq/L 136-145 okrs=525) POTASSIUM (BEAKER) (test 3.6 meq/L 3.5-5.1 blvt=282) CHLORIDE (BEAKER) (test 108 meq/L 98-107 hfen=040) CO2 (BEAKER) (test 25 meq/L 22-29 gymu=885) BLOOD UREA NITROGEN 36 mg/dL 7-21 (BEAKER) (test pweo=343) CREATININE (BEAKER) (test 1.72 mg/dL 0.57-1.25 cjmb=847) GLUCOSE RANDOM (BEAKER) 108 mg/dL 70-105 (test ckpe=344) CALCIUM (BEAKER) (test 8.9 mg/dL 8.4-10.2 iwof=022) EGFR (BEAKER) (test 34 mL/min/1.73 sq m ESTIMATED GFR IS NOT xoqp=2516) ACCURATE CREATININE CLEARANCE IN PREDICTING GLOMERULAR FILTRATION RATE. ESTIMATED GFR IS NOT APPLICABLE FOR DIALYSIS PATIENTS. [id number] 02:55:00 Test Item Value Reference Range Comments PARTIAL THROMBOPLASTIN TIME (BEAKER) (test 104.5 seconds 22.5-36.0 hfzz=275) [id number] 01:16:00 Test Item Value Reference Range Comments PARTIAL THROMBOPLASTIN TIME (BEAKER) (test > seconds 22.5-36.0 brti=793) TROPONIN [id number] 01:07:00 Test Item Value Reference Range Comments TROPONIN I (BEAKER) (test nshr=285) < ng/mL 0.00-0.03 Troponin I (TnI) levels [...] failure, acidosis, acute neurological disease, and persistent tachyarrhythmia.[id number] 23:20:00 Test Item Value Reference Range Comments MAGNESIUM (BEAKER) (test gaoz=064) 1.5 mg/dL 1.6-2.6 TROPONIN [id number] 21:24:00 Test Item Value Reference Range Comments TROPONIN I (BEAKER) (test sygc=827) < ng/mL 0.00-0.03 Troponin I (TnI) levels [...] failure, acidosis, acute neurological disease, and persistent tachyarrhythmia.[id number] 21:18:00 Test Item Value Reference Range Comments PARTIAL THROMBOPLASTIN TIME (BEAKER) (test 189.3 seconds 22.5-36.0 xrle=204) COMPREHENSIVE METABOLIC [id number] 21:18:00 Test Item Value Reference Range Comments TOTAL PROTEIN (BEAKER) 6.0 gm/dL 6.0-8.3 (test lupd=114) ALBUMIN (BEAKER) (test 3.3 g/dL 3.5-5.0 shvg=5694) ALKALINE PHOSPHATASE 88 U/L 40-150 (BEAKER) (test ozkv=451) BILIRUBIN TOTAL (BEAKER) 0.3 mg/dL 0.2-1.2 (test jsxo=963) SODIUM (BEAKER) (test 143 meq/L 136-145 mltc=721) POTASSIUM (BEAKER) (test 3.5 meq/L 3.5-5.1 jzuy=428) CHLORIDE (BEAKER) (test 110 meq/L 98-107 dcyq=000) CO2 (BEAKER) (test 23 meq/L 22-29 alaf=019) BLOOD UREA NITROGEN 38 mg/dL 7-21 (BEAKER) (test ykri=182) CREATININE (BEAKER) (test 1.86 mg/dL 0.57-1.25 kcdk=596) GLUCOSE RANDOM (BEAKER) 177 mg/dL 70-105 (test bwpr=779) CALCIUM (BEAKER) (test 8.8 mg/dL 8.4-10.2 bqhv=691) AST (SGOT) (BEAKER) (test 17 U/L 5-34 zjmg=355) ALT (SGPT) (BEAKER) (test 17 U/L 6-55 noit=885) EGFR (BEAKER) (test 31 mL/min/1.73 sq m ESTIMATED GFR IS NOT cysj=5374) ACCURATE CREATININE CLEARANCE IN PREDICTING GLOMERULAR FILTRATION RATE. ESTIMATED GFR IS NOT APPLICABLE FOR DIALYSIS PATIENTS. [id number] 21:07:00 Test Item Value Reference Range Comments FIBRINOGEN LEVEL (BEAKER) (test omdk=018) 284 mg/dl 225-434 PROTHROMBIN [id number] 21:06:00 Test Item Value Reference Range Comments PROTIME (BEAKER) (test gvwb=025) 14.4 seconds 11.7-14.7 INR (BEAKER) (test avdi=081) 1.2 <=5.9 RECOMMENDED COUMADIN/WARFARIN INR THERAPY RANGESSTANDARD DOSE: 2.0 - 3.0 Includes: PROPHYLAXIS forvenous thrombosis, systemic embolization; TREATMENT for venous thrombosis and/or pulmonary embolus.HIGH RISK: Target INR is 2.5-3.5 for patients with mechanical heart valves.CBC W/PLT COUNT & AUTO [id number] 21:01:00 Test Item Value Reference Range Comments WHITE BLOOD CELL COUNT 8.9 K/ L 3.5-10.5 (BEAKER) (test qxbi=077) RED BLOOD CELL COUNT (BEAKER) 4.46 M/ L 3.93-5.22 (test aozo=395) HEMOGLOBIN (BEAKER) (test 9.8 GM/DL 11.2-15.7 apli=982) HEMATOCRIT (BEAKER) (test 30.2 % 34.1-44.9 zfaz=907) MEAN CORPUSCULAR VOLUME 67.7 fL 79.4-94.8 (BEAKER) (test boax=914) MEAN CORPUSCULAR HEMOGLOBIN 22.0 pg 25.6-32.2 (BEAKER) (test nwor=842) MEAN CORPUSCULAR HEMOGLOBIN 32.5 GM/DL 32.2-35.5 CONC (BEAKER) (test kvon=662) RED CELL DISTRIBUTION WIDTH 16.2 % 11.7-14.4 (BEAKER) (test vpui=273) PLATELET COUNT (BEAKER) (test 168 K/CU MM 150-450 aqaw=117) MEAN PLATELET VOLUME (BEAKER) fL 9.4-12.3 Unable to report due to (test ulua=092) abnormal Platelet population distribution. NUCLEATED RED BLOOD CELLS 0 /100 WBC 0-0 (BEAKER) (test vezi=879) NEUTROPHILS RELATIVE PERCENT 74 % (BEAKER) (test djby=521) LYMPHOCYTES RELATIVE PERCENT 14 % (BEAKER) (test dkss=254) MONOCYTES RELATIVE PERCENT 10 % (BEAKER) (test pqms=097) EOSINOPHILS RELATIVE PERCENT 2 % (BEAKER) (test eewz=723) BASOPHILS RELATIVE PERCENT 1 % (BEAKER) (test rlug=561) NEUTROPHILS ABSOLUTE COUNT 6.58 K/ L 1.56-6.13 (BEAKER) (test xmrc=155) LYMPHOCYTES ABSOLUTE COUNT 1.22 K/ L 1.18-3.74 (BEAKER) (test ewky=192) MONOCYTES ABSOLUTE COUNT 0.85 K/ L 0.24-0.36 (BEAKER) (test zncw=331) EOSINOPHILS ABSOLUTE COUNT 0.19 K/ L 0.04-0.36 (BEAKER) (test skwe=077) BASOPHILS ABSOLUTE COUNT 0.05 K/ L 0.01-0.08 (BEAKER) (test lioy=094) IMMATURE GRANULOCYTES-RELATIVE 0 % 0-1 PERCENT (BEAKER) (test tqqi=8660) RAD, CHEST, 1 VIEW, NON [id number] 20:34:00Reason for exam:->new admissionShould this be performed at the bedside?->YesFINAL REPORT INDICATION: new admission COMPARISON: None TECHNIQUE: Single frontal view of the chest. FINDINGS: Lungs and pleura: Clear lungs. No effusion.Heart and mediastinum: Normal heart size. Atherosclerotic calcification of the aortaOsseous structures: No acute abnormality.Other: None. IMPRESSION: No acute intrathoracic abnormality. Signed: Elizabeth Suarez MDReport Verified Date/Time: 08/03/2018 20:34:40 Reading Location: [address] Neuro Reading Room
--- NOTE | 2019-03-25 14:54 | RAD REPORT ---
EXAM DESCRIPTION: CT - Head Brain Wo Cont - 03/25/2019 2:48 pm CLINICAL HISTORY: Blurred vision, weakness COMPARISON: March 2017 CT head TECHNIQUE: Axial 5 mm thick images of the head were obtained without IV contrast. All CT scans are performed using dose optimization technique as appropriate and may include automated exposure control or mA/KV adjustment according to patient size. FINDINGS: No intracranial hemorrhage, mass, edema or shift of mid-line structures. No acute infarcti on changes seen. No cortical edema or sulcal effacement. Atrophy and chronic ischemic changes are pre sent, mild for age, and similar to comparison. Arterial and physiologic calcifications are present. V entricles are normal. Mastoid air cells and visualized portions of the paranasal sinuses are clear. No acute bony findings. IMPRESSION: Atrophy and chronic ischemic changes are present matching comparison. No acute intracranial findings.
--- NOTE | 2019-03-25 14:55 | RAD REPORT ---
EXAM DESCRIPTION: RAD - Chest Single View - 03/25/2019 2:19 pm CLINICAL HISTORY: Cough COMPARISON: May 2017 TECHNIQUE: AP portable chest image was obtained 1411 hours . FINDINGS: No focal mass or consolidation. Patient has a chronic interstitial lung pattern. Interstit ial pattern is increased slightly from comparison. Cardiac silhouette is slightly enlarged from maryana rison. Vasculature is also increased slightly. No measurable pleural effusion and no pneumothorax. No acute bony abnormality seen. No acute aortic findings suspected. IMPRESSION: No focal mass or consolidation. Heart, vasculature and lung markings are all fractionally increased over the comparison. Correlation can be made with any mild failure or volume overload findings.
--- NOTE | 2019-03-25 14:58 | RAD REPORT ---
EXAM DESCRIPTION: US - Extrem Venous W Compress Nba - 03/25/2019 2:43 pm CLINICAL HISTORY: Bilateral leg pain and swelling COMPARISON: None. TECHNIQUE: Real-time sonographic evaluation of the bilateral lower extremity common femoral, superfi cial femoral, popliteal and posterior tibial veins was performed. FINDINGS: Normal compressibility, flow augmentation, phasic flow and spontaneous flow are identified in the left and right lower extremity common femoral, superficial femoral, popliteal and posterior t ibial veins. No intraluminal filling defects seen. IMPRESSION: No DVT in either lower extremity.
[2019-03-25 15:16] LABS: Protime INR 0.97
[2019-03-25 15:35] LABS: Absolute Lymphocytes (CBC) 1.6 K/uL (0.7-4.9); Basophils % 0.9 % (0-1.3); Lymphocytes % 20.5 % (15.3-44.8); RBC Red Blood Cell Count 4.86 M/uL (3.86-4.86)
[2019-03-25 15:39] LABS: ALT/SGPT 17 U/L (12-78); AST/SGOT 14 U/L (15-37); Albumin 3.5 g/dL (3.4-5.0); Alkaline Phosphatase 113 U/L (45-117); BUN Blood Urea Nitrogen 48 mg/dL (7-18); Bicarbonate 31 mmol/L (21-32); Bilirubin Direct 0.1 mg/dL (0-0.2); Bilirubin Total 0.4 mg/dL (0.2-1.0); Glucose Level 91 mg/dL (74-106); Lipase 168 U/L (73-393); Magnesium 1.9 mg/dL (1.8-2.4); NT PRO-BNP 306 pg/mL (<450); Potassium 4.3 mmol/L (3.5-5.1); Protein, Total 7.1 g/dL (6.4-8.2); Sodium Level 146 mmol/L (136-145); Troponin (Emerg Dept Use Only) < 0.02 ng/mL (0.0-0.045)
[2019-03-25 15:50] LABS: Blood Morphology Comment NOTED (NOT SEEN); Platelet Estimate ADEQ; Urine White Blood Cell Casts OK
[2019-03-25 15:51] LABS: Urine Blood NEGATIVE (NEG); Urine Glucose NEGATIVE (NEG); Urine Protein 1+ (NEG); Urine Specific Gravity 1.015 (1.005-1.030)
--- NOTE | 2019-03-25 15:58 | ER ---
Nurse's Notes [facility] Name: Nitza Khanna Age: 84 yrs Sex: Female : 1935 Arrival Date: 03/25/2019 Time: 13:25 Bed 13 Private MD: Aba Rodriguez E Diagnosis: Syncope and collapse-near;Unspecified combined systolic (congestive) and diastolic (congestive) heart failure;Essential (primary) hypertension;Unspecified kidney failure;Visual disturbances-blurry;Weakness Presentation: 03/25 13:32 Presenting complaint: Patient states: Blurred vision and Hyperension for two weeks, sg reports generalized weakness that began 2 days ago. Transition of care: patient was not received from another setting of care. Onset of symptoms was March 25, 2019. Risk Assessment: Do you want to hurt yourself or someone else? Patient reports no desire to harm self or others. Initial Sepsis Screen: Does the patient meet any 2 criteria? No. Patient's initial sepsis screen is negative. Does the patient have a suspected source of infection? No. Patient's initial sepsis screen is negative. Care prior to arrival: None. 13:32 Method Of Arrival: Wheelchair 13:32 Acuity: RADHA 3 sg Historical: - Allergies: 13:34 aspirin EC; sg - PMHx: 13:34 Anemia; DVT; GI Bleed; High Cholesterol; Hypertension; sg - Immunization history:: Adult Immunizations not up to date. - Social history:: Smoking status: Patient uses tobacco products. - Ebola Screening: : Patient negative for fever greater than or equal to 101.5 degrees Fahrenheit, and additional compatible Ebola Virus Disease symptoms Patient denies exposure to infectious person Patient denies travel to an Ebola-affected area in the 21 days before illness onset No symptoms or risks identified at this time. - Family history:: not pertinent. Screenin:57 Abuse screen: Denies threats or abuse. Denies injuries from another. Nutritional ph screening: No deficits noted. Tuberculosis screening: No symptoms or risk factors identified. Fall Risk None identified. Assessment: 14:00 General: Appears in no apparent distress. comfortable, well groomed, Behavior is calm, ph cooperative, appropriate for age, Denies fever, feeling ill. Pain: Complains of pain in head. Neuro: Level of Consciousness is awake, alert, obeys commands, Oriented to person, place, time, situation, High Density Talc Coater Operator are equal bilaterally Moves all extremities. Full function Speech is normal, Facial symmetry appears normal, Reports blurred vision dizziness, headache Denies weakness difficulty swallowing. Cardiovascular: Reports nausea, vomiting, Denies chest pain, shortness of breath, Capillary refill < 3 seconds in bilateral fingers Patient's skin is warm and dry. Edema is 2+ to left knee, left midcalf, right knee, right midcalf, right ankle and right foot. Respiratory: Airway is patent Respiratory effort is even, unlabored. GI: No signs and/or symptoms were reported involving the gastrointestinal system. Derm: Skin is intact, Skin is pink, warm \T\ dry. Musculoskeletal: Circulation, motion, and sensation intact. Range of motion: intact in all extremities. 15:15 Reassessment: Pt in radiology. ph 16:30 Reassessment: Patient appears in no apparent distress at this time. Patient and/or ph family updated on plan of care and expected duration. Pain level reassessed. Patient is alert, oriented x 3, equal unlabored respirations, skin warm/dry/pink. 17:30 Reassessment: Patient appears in no apparent distress at this time. Patient and/or ph family updated on plan of care and expected duration. Pain level reassessed. Patient is alert, oriented x 3, equal unlabored respirations, skin warm/dry/pink. Pt resting quietly, ambulated to restroom w/steady gait, urine sample obtained, awaiting room assignment. 18:30 Reassessment: Patient appears in no apparent distress at this time. Patient and/or ph family updated on plan of care and expected duration. Pain level reassessed. Patient is alert, oriented x 3, equal unlabored respirations, skin warm/dry/pink. Pt eating sandwich and chips tolerating well. 19:15 Reassessment: Patient appears in no apparent distress at this time. Patient and/or wh family updated on plan of care and expected duration. Pain level reassessed. Patient is alert, oriented x 3, equal unlabored respirations, skin warm/dry/pink. 21:15 Reassessment: Patient appears in no apparent distress at this time. No changes from previously documented assessment. Patient and/or family updated on plan of care and expected duration. Pain level reassessed. Patient is alert, oriented x 3, equal unlabored respirations, skin warm/dry/pink. Patient denies pain at this time. 22:50 Reassessment: Patient appears in no apparent distress at this time. No changes from previously documented assessment. Patient and/or family updated on plan of care and expected duration. Pain level reassessed. Patient is alert, oriented x 3, equal unlabored respirations, skin warm/dry/pink. Patient denies pain at this time. 03/26 14:31 Reassessment: Called rashel re discharge. He said he will be here in 30-40 minutes. ca1 15:05 Reassessment: Pt ambulated to restroom then home with rashel. D/C instruction given ca1 to grandson and pt. Pt alert, stable and ambulatory at discharge. Vital Signs: 03/25 13:29 BP 110 / 47; Pulse 78; Resp 18; Temp 98.6; Pulse Ox 100% on R/A; Pain 4/10; sg 14:00 BP 182 / 63; Pulse 71; Resp 17; Temp 98.1(O); Pulse Ox 99% on R/A; mh5 15:46 BP 174 / 68; Pulse 71; Resp 18; Temp 97.9(O); Pulse Ox 99% on R/A; mh5 16:40 BP 167 / 62; Pulse 72; Resp 18; Pulse Ox 99% on R/A; ph 18:00 BP 178 / 68; Pulse 74; Resp 16; Pulse Ox 100% on R/A; ph 19:30 BP 136 / 51; Pulse 80; Resp 18; Pulse Ox 98% ; wh 20:27 BP 129 / 46; Pulse 74; Resp 18; Pulse Ox 97% ; cm6 ED Course: 13:25 Patient arrived in ED. am2 13:25 Aba Rodriguez MD is Private Physician. am2 13:29 Heidi Petit, ALEXIS is Primary Nurse. ph 13:32 Arm band placed on. sg 13:33 Triage completed. sg 13:36 Tony Werner MD is Attending Physician. torsten 14:19 XRAY Chest (1 view) In Process Unspecified. EDMS 14:39 US Extremity Venous W Compression Nba In Process Unspecified. EDMS 14:43 Patient has correct armband on for positive identification. Bed in low position. Call 5 light in reach. Side rails up X 1. monitoring analyst on. Pulse ox on. NIBP on. 14:48 CT Head Brain wo Cont In Process Unspecified. EDMS 15:38 EKG done, by er medical technician. reviewed by Tony Werner MD. tc 15:55 Nancy Khan MD is Hospitalizing Provider. [facility] 18:53 No provider procedures requiring assistance completed. ph 03/26 00:00 Patient admitted, IV remains in place. 06:53 Primary Nurse role handed off by Heidi Petit RN 09:00 Diet: Patient given a regular meal tray. [facility] Administered Medications: 03/25 16:00 Drug: NS 0.9% 1000 ml Route: IV; Rate: 75 ml/hr; Site: right antecubital; ph 18:55 Follow up: IV Status: Infusion continued upon admission ph Outcome: 15:57 Decision to Hospitalize by Provider. [facility] 03/26 00:00 Admitted to ER Hold. Please see [facility] for further documentation. Condition: stable Instructed on the need for admit. 15:06 Patient left the ED. ca1 Signatures: Dispatcher [employer] EDMS Angel Woodard, RN Tony Blackmon MD MD cha Callis, Tiffany, entry specialist EKG Ttc Heidi Petit, RN RN ph Mari Sandoval 5 Sowmya Goetz am2 Addison Bowen Elise Moreno Cheryl RN RN ca1 Maureen Hurtado 6
--- NOTE | 2019-03-25 15:58 | EDPHYS ---
Physician Documentation [facility] Name: Nitza Khanna Age: 84 yrs Sex: Female : 1935 Arrival Date: 03/25/2019 Time: 13:25 Bed 13 Private MD: Aba Rodriguez E ED Physician Tony Werner HPI: 03/25 14:00 This 84 yrs old Black Female presents to ER via Wheelchair with complaints of Vision torsten Problem, Blood Pressure Problem. 14:00 The patient is experiencing blurred vision. Onset: The symptoms/episode began/occurred torsten 3 day(s) ago. Aggravated by nothing. Alleviated by nothing. Associated signs and symptoms: Pertinent positives: headache. The patient presents with decreased range of motion, pain, swelling. The complaints affect the right leg and left leg. Modifying factors: The symptoms are alleviated by nothing. the symptoms are aggravated by nothing. Historical: - Allergies: 13:34 aspirin EC; sg - PMHx: 13:34 Anemia; DVT; GI Bleed; High Cholesterol; Hypertension; sg - Immunization history:: Adult Immunizations not up to date. - Social history:: Smoking status: Patient uses tobacco products. - Ebola Screening: : Patient negative for fever greater than or equal to 101.5 degrees Fahrenheit, and additional compatible Ebola Virus Disease symptoms Patient denies exposure to infectious person Patient denies travel to an Ebola-affected area in the 21 days before illness onset No symptoms or risks identified at this time. - Family history:: not pertinent. ROS: 14:00 Constitutional: Negative for fever, chills, and weight loss, ENT: Negative for injury, torsten pain, and discharge, Neck: Negative for injury, pain, and swelling, Cardiovascular: Negative for chest pain, palpitations, and edema, Respiratory: Negative for shortness of breath, cough, wheezing, and pleuritic chest pain. 14:00 Eyes: Positive for blurry vision. 14:00 Cardiovascular: Negative for chest pain. 14:00 Abdomen/GI: Negative for abdominal pain. 14:00 MS/extremity: Positive for decreased range of motion, pain, swelling, of the right leg and left leg. Exam: 14:00 Constitutional: This is a well developed, well nourished patient who is awake, alert, torsten and in no acute distress. Head/Face: Normocephalic, atraumatic. Eyes: Pupils equal round and reactive to light, extra-ocular motions intact. Lids and lashes normal. Conjunctiva and sclera are non-icteric and not injected. Cornea within normal limits. Periorbital areas with no swelling, redness, or edema. ENT: Nares patent. No nasal discharge, no septal abnormalities noted. Tympanic membranes are normal and external auditory canals are clear. Oropharynx with no redness, swelling, or masses, exudates, or evidence of obstruction, uvula midline. Mucous membranes moist. Neck: Trachea midline, no thyromegaly or masses palpated, and no cervical lymphadenopathy. Supple, full range of motion without nuchal rigidity, or vertebral point tenderness. No Meningismus. Chest/axilla: Normal chest wall appearance and motion. Nontender with no deformity. No lesions are appreciated. Cardiovascular: Regular rate and rhythm with a normal S1 and S2. No gallops, murmurs, or rubs. Normal PMI, no JVD. No pulse deficits. Respiratory: Lungs have equal breath sounds bilaterally, clear to auscultation and percussion. No rales, rhonchi or wheezes noted. No increased work of breathing, no retractions or nasal flaring. Abdomen/GI: Soft, non-tender, with normal bowel sounds. No distension or tympany. No guarding or rebound. No evidence of tenderness throughout. Back: No spinal tenderness. No costovertebral tenderness. Full range of motion. Skin: Warm, dry with normal turgor. Normal color with no rashes, no lesions, and no evidence of cellulitis. Neuro: Awake and alert, GCS 15, oriented to person, place, time, and situation. Cranial nerves II-XII grossly intact. Motor strength 5/5 in all extremities. Sensory grossly intact. Cerebellar exam normal. Normal gait. Psych: Awake, alert, with orientation to person, place and time. Behavior, mood, and affect are within normal limits. 14:00 Musculoskeletal/extremity: ROM: full active range of motion, full passive range of motion, Circulation is intact in all extremities. Sensation intact. Compartment Syndrome exam of affected extremity: is normal. Vital Signs: 13:29 BP 110 / 47; Pulse 78; Resp 18; Temp 98.6; Pulse Ox 100% on R/A; Pain 4/10; sg 14:00 BP 182 / 63; Pulse 71; Resp 17; Temp 98.1(O); Pulse Ox 99% on R/A; mh5 15:46 BP 174 / 68; Pulse 71; Resp 18; Temp 97.9(O); Pulse Ox 99% on R/A; mh5 16:40 BP 167 / 62; Pulse 72; Resp 18; Pulse Ox 99% on R/A; ph 18:00 BP 178 / 68; Pulse 74; Resp 16; Pulse Ox 100% on R/A; ph 19:30 BP 136 / 51; Pulse 80; Resp 18; Pulse Ox 98% ; wh 20:27 BP 129 / 46; Pulse 74; Resp 18; Pulse Ox 97% ; cm6 MDM: 13:36 Patient medically screened. [facility] 14:03 Data reviewed: vital signs, nurses notes, lab test result(s), EKG, radiologic studies, torsten CT scan, doppler, plain films. 03/25 13:57 Order name: Basic Metabolic Panel; Complete Time: 15:41 [facility] 03/25 13:57 Order name: CBC with Diff [facility] 03/25 13:57 Order name: LFT's; Complete Time: 15:41 [facility] 03/25 13:57 Order name: Magnesium; Complete Time: 15:41 [facility] 03/25 13:57 Order name: NT PRO-BNP; Complete Time: 15:41 [facility] 03/25 13:57 Order name: PT-INR; Complete Time: 15:41 [facility] 03/25 13:57 Order name: Troponin (emerg Dept Use Only); Complete Time: 15:41 [facility] 03/25 13:57 Order name: Urine Culture [facility] 03/25 13:57 Order name: Lipase; Complete Time: 15:41 [facility] 03/25 15:18 Order name: Urine Dipstick--Ancillary (enter results) 03/25 15:51 Order name: CBC Smear Scan EDMS 03/26 06:11 Order name: CBC with Automated Diff EDMS 03/26 07:07 Order name: Comprehensive Metabolic Panel EDCT 03/26 07:07 Order name: Phosphorus EDCT 03/25 13:57 Order name: XRAY Chest (1 view); Complete Time: 15:41 [facility] 03/25 13:57 Order name: EKG; Complete Time: 13:58 [facility] 03/25 13:57 Order name: Cardiac monitoring; Complete Time: 17:08 [facility] 03/25 13:57 Order name: EKG - Nurse/Tech; Complete Time: 17:09 [facility] 03/25 13:57 Order name: IV Saline Lock; Complete Time: 17:09 [facility] 03/25 13:57 Order name: Labs collected and sent; Complete Time: 17:10 [facility] 03/25 13:57 Order name: O2 Per Protocol; Complete Time: 17:10 [facility] 03/25 13:57 Order name: O2 Sat Monitoring; Complete Time: 17:10 [facility] 03/25 13:57 Order name: CT Head Brain wo Cont; Complete Time: 15:41 [facility] 03/25 13:57 Order name: US Extremity Venous W Compression Nba; Complete Time: 15:41 [facility] 03/25 17:50 Order name: Diet Heart Healthy; Complete Time: 17:51 ph 03/26 07:07 Order name: Magnesium [facility] 03/26 07:49 Order name: CBC Smear Scan [facility] 03/26 08:14 Order name: US [facility] 03/26 10:42 Order name: MRI [facility] 03/25 13:57 Order name: Urine Dipstick-Ancillary (obtain specimen); Complete Time: 18:53 [facility] 03/25 15:15 Order name: Labs - recollect needed: lavender top recollect; Complete Time: 19:08 eb Administered Medications: 16:00 Drug: NS 0.9% 1000 ml Route: IV; Rate: 75 ml/hr; Site: right antecubital; ph 18:55 Follow up: IV Status: Infusion continued upon admission ph Disposition: 03/25/19 15:57 Hospitalization ordered by Nancy Khan for Inpatient Admission. Preliminary diagnosis are Syncope and collapse - near, Unspecified combined systolic (congestive) and diastolic (congestive) heart failure, Essential (primary) hypertension, Unspecified kidney failure, Visual disturbances - blurry, Weakness. - Bed requested for [facility] ER HOLD. - Status is Inpatient Admission. ca1 - Condition is Fair. - Problem is new. - Symptoms have improved. UTI on Admission? No Signatures: Dispatcher [employer] EDMS Angel Woodard, RN Tony Blackmon MD MD cha Hall, Patricia, RN RN Olga Dietz RN RN Elise Moreno Cheryl, RN RN ca1 Corrections: (The following items were deleted from the chart) 17:33 15:57 Hospitalization Ordered by Nancy Khan MD for Inpatient Admission. Preliminary eb diagnosis is Syncope and collapse - near; Unspecified combined systolic (congestive) and diastolic (congestive) heart failure; Essential (primary) hypertension; Unspecified kidney failure; Visual disturbances - blurry; Weakness. Bed requested for Telemetry/MedSurg (Inpatient). Status is Inpatient Admission. Condition is Fair. Problem is new. Symptoms have improved. UTI on Admission? No. torsten 22:02 17:33 03/25/2019 15:57 Hospitalization Ordered by Nancy Khan MD for Inpatient cg Admission. Preliminary diagnosis is Syncope and collapse - near; Unspecified combined systolic (congestive) and diastolic (congestive) heart failure; Essential (primary) hypertension; Unspecified kidney failure; Visual disturbances - blurry; Weakness. Bed requested for Telemetry/MedSurg (Inpatient). Status is Inpatient Admission. Condition is Fair. Problem is new. Symptoms have improved. UTI on Admission? No. eb 03/26 15:06 03/25 22:02 03/25/2019 15:57 Hospitalization Ordered by Nancy Khan MD for Inpatient ca1 Admission. Preliminary diagnosis is Syncope and collapse - near; Unspecified combined systolic (congestive) and diastolic (congestive) heart failure; Essential (primary) hypertension; Unspecified kidney failure; Visual disturbances - blurry; Weakness. Bed requested for [facility] ER HOLD. Status is Inpatient Admission. Condition is Fair. Problem is new. Symptoms have improved. UTI on Admission? No. cg
--- NOTE | 2019-03-25 17:11 | EKG ---
Test Date: 2019-03-25 Test Time: 15:32:43 Freight Forwarder: PRIMO MEASUREMENT RESULTS: Intervals: Rate: 72 LA: 154 QRSD: 86 QT: 420 QTc: 459 [place]: P: 71 LA: 154 QRS: 65 T: 48 INTERPRETIVE STATEMENTS: Normal sinus rhythm Right atrial enlargement Nonspecific T wave abnormality Abnormal ECG Compared to ECG 04/04/2017 17:23:07 Atrial abnormality now present T-wave abnormality still present Electronically Signed On 03-25-19 17:10:05 THERAPIST ASST by Baldev Terry
--- NOTE | 2019-03-25 20:20 | P.HP ---
Certification for Inpatient Patient admitted to: Observation With expected LOS: <2 Midnights Practitioner: I am a practitioner with admitting privileges, knowledge of patient current condition, hospital course, and medical plan of care. Services: Services provided to patient in accordance with Admission requirements found in Title 42 Section 412.3 of the Code of Federal Regulations Patient History Date of Service: 03/26/19 Reason for admission: Dizziness and blurry vision History of Present Illness: 84-year-old woman with a history of hypertension and CAD status post CABG, presented to the emergency department with a complaint of dizziness and blurry vision of sudden onset since this morning. She noted her blood pressure was very high and relates her symptoms to it. She also reported wobbly gait. She denied any limb weakness or problems speech. She denied any shortness of breath or chest pain. No reported loss of consciousness His CT head in the ED was negative for acute disease. EKG report nonspecific T- wave changes. Her systolic blood pressure became elevated to the 180s at some point in the ED. She was normotensive during my examination. Chest x-ray is unremarkable. There is a high concern for TIA given her risk factors. Patient is placed under observation for syncope/TIA workup. Allergies aspirin Allergy (Severe, Verified 03/26/19 00:18) Hives/Rash aspirin EC Allergy (Uncoded 03/26/19 00:18) Unknown Home Medications: Lisinopril 40 mg PO DAILY #0 tablet 08/27/11 Meclizine HCl 25 mg PO TID PRN 02/17/14 Pantoprazole [Protonix Tab*] 40 mg PO DAILY 12/23/15 Ferrous Sulfate 325 mg PO DAILY #30 tablet 12/24/15 Metoprolol Tartrate [Lopressor*] 50 mg PO BID #60 tab 12/24/15 Amlodipine [Norvasc*] 10 mg PO DAILY 06/06/17 Atorvastatin Calcium [Lipitor] 1 tab PO DAILY 06/06/17 Fluticasone/Salmeterol [Advair Hfa 115-21 Mcg Inhaler] 8 gm IH BID #1 aer.w.adap 06/06/17 Furosemide [Lasix] 20 mg PO DAILY #30 tab 06/06/17 hydroCHLOROthiazide [Hydrochlorothiazide] 1 tab PO DAILY 06/06/17 predniSONE [Prednisone*] 20 mg PO BID #20 tab 03/23/18 - Past Medical/Surgical History Diabetic: No -: SHINGLES -: HTN -: HYPERLIPIDEMIA -: ANEMIA -: DVT IN LEFT LEG -: GI BLEED -: HYSTERECTOMY -: CABG - Family History Mother -: Heart disease - Social History Alcohol use: No CD- Drugs: No Caffeine use: Yes Review of Systems Other: General: No fever, no malaise, no unintentional weight loss. Eyes: No eye discharge, Respiratory: No cough, no shortness of breath. CVS: No chest pain, no palpitation, no lightheadedness. GI: No abdominal pain, no nausea no vomit, no constipation, no diarrhea. Genitourinary: No dysuria, no urinary frequency, no incontinence, no hematuria. Musculoskeletal: No joint pains, or joint swelling, no gait instability. Neurology: No headache, no asymmetric weakness, no problem with swallowing. Except as documented, all other systems reviewed and negative. Physical Examination - Physical Exam General: Alert, In no apparent distress, Oriented x3 HEENT: Atraumatic, Normocephalic, PERRLA, Mucous membr. moist/pink, Sclerae nonicteric Neck: Supple, 2+ carotid pulse no bruit, JVD not distended, Other (Left posterior triangle lymphadenopathy, firm and nontender) Respiratory: Clear to auscultation bilaterally, Normal air movement Cardiovascular: No edema, Regular rate/rhythm, Normal S1 S2, No murmurs Gastrointestinal: Normal bowel sounds, Soft and benign, Non-distended, No tenderness Musculoskeletal: No swelling, No erythema Integumentary: No rashes, No erythema Neurological: Normal speech, Normal strength at 5/5 x4 extr, Cranial nerves 3- 12 intact - Studies Laboratory Data (last 24 hrs) 03/25/19 15:25: WBC 7.6, Hgb 11.1 L, Hct 34.0 L, Plt Count 160 03/25/19 15:00: PT 11.5, INR 0.97 03/25/19 15:00: Sodium 146 H, Potassium 4.3, BUN 48 H, Creatinine 2.64 H, Glucose 91, Magnesium 1.9, Total Bilirubin 0.4, AST 14 L, ALT 17, Alkaline Phosphatase 113, Lipase 168 Assessment and Plan - Problems (Diagnosis) (1) TIA (transient ischemic attack) Current Visit: Yes Status: Acute (2) Malignant hypertension Current Visit: Yes Status: Acute (3) Acute kidney injury superimposed on CKD Onset Date: 06/06/17 Current Visit: No Status: Acute (4) Dizziness Onset Date: 05/29/15 Current Visit: No Status: Acute - Plan Place under observation with telemetry. Trend troponin Obtain echocardiogram and carotid Doppler. MRI of the brain to rule out stroke Check lipid profile Aggressive blood pressure control. Hydralazine p.r.n. for BP spikes Hold lisinopril, HCTZ and Lasix given increase in serum creatinine. Continue amlodipine and metoprolol for blood pressure Nephrology consult. - Advance Directives Does patient have a Living Will: No Does patient have a Durable POA for Healthcare: Yes
[2019-03-25] MEDS ORDERED: ACETAMINOPHEN 500 MG TAB PO PRN (22:23)
[2019-03-25] MEDS: NA CHLORIDE 0.9% 1,000 ML IV SCH (22:23)
[2019-03-25] MEDS ORDERED: ONDANSETRON 4 MG/2 ML VIAL IV PRN (22:23)
[2019-03-25] MEDS ORDERED: HYDRALAZINE HCL 20 MG/ML VIAL IV PRN (22:23)
[2019-03-26 00:18] VITALS: BMI 23.1
[2019-03-26] MEDS ORDERED: NA CHLORIDE 0.9% 1,000 ML ONE (00:47)
[2019-03-26 05:43] LABS: Absolute Lymphocytes (CBC) 1.5 K/uL (0.7-4.9); Basophils % 1.2 % (0-1.3); Hematocrit 30.3 % (36.0-45.0); Lymphocytes % 23.7 % (15.3-44.8); MPV 10.5 fL (7.6-11.3); RBC Red Blood Cell Count 4.36 M/uL (3.86-4.86)
[2019-03-26 07:06] LABS: Albumin 2.9 g/dL (3.4-5.0); Bilirubin Total 0.4 mg/dL (0.2-1.0); Magnesium 1.8 mg/dL (1.8-2.4); Phosphorus 3.5 mg/dL (2.5-4.9); Protein, Total 5.9 g/dL (6.4-8.2)
[2019-03-26 07:48] VITALS: O2SAT 98
[2019-03-26 07:49] LABS: Blood Morphology Comment NOTED (NOT SEEN); Platelet Estimate ADEQ; Urine White Blood Cell Casts OK
[2019-03-26] MEDS ORDERED: PNEUMOCOCCAL VACCINE 0.5 ML IMVAC ONE ×2 (08:00→13:03)
[2019-03-26] MEDS ORDERED: INFLUENZA VACCINE (for 3y+) 0.5 ML DOSE IMVAC ONE ×2 (08:00→13:02)
--- NOTE | 2019-03-26 08:13 | RAD REPORT ---
EXAM DESCRIPTION: - CP - 03/26/2019 7:28 am CLINICAL HISTORY: TIA COMPARISON: Soft Tissue Neck W/O Cont dated 02/10/2019 MRI W/O Cont dated 02/10/2019; Head Brain Wo Cont dated 03/25/2019 TECHNIQUE: Real-time sonographic evaluation of bilateral carotid and vertebral systems was performed . Roy scale and Doppler interrogation were performed with waveform tracing bilaterally. FINDINGS: Normal high resistance waveforms are noted in both external carotid arteries. The common c arotid arteries and internal carotid arteries show normal low resistance waveforms. Mild plaquing changes are present in the left common carotid artery and proximal portions of the left internal and external carotid artery's. Visually there is no significant luminal narrowing. No suspi cious velocity values on the left. No suspicious left-side ICA/CCA ratio. Patient has stenting in the distal left common carotid artery and bulb region as well as stenting in the internal carotid artery. There is a dense plaque near the ICA CCA junction the precluded visualiz ation. Flow was demonstrated proximal and distal to this dense shadowing plaque. Elevated velocities noted in the midportion of the right internal carotid artery. Right ICA/ CCA value was elevated at 2. 11 in value. Antegrade flow seen in both vertebral arteries. Velocity values and ratios were recorded and are retained in the patient's imaging records. IMPRESSION: Common carotid and proximal internal carotid artery stenting present on the right. Dense plaquing limits visualization in the right ICA/CCA junction. Elevated velocity values and abnormal ICA/ CCA ratio on the right indicates significant stenosis dist al to the stent. No significant left-sided plaquing changes. No stenosis on the left. No evidence of a hemodynamically significant stenosis.
--- NOTE | 2019-03-26 10:17 | ECHO ---
HEIGHT: 5 ft 4 in WEIGHT: 135 lb 0 oz DATE OF STUDY: 03/26/[address]: ritika will 2-DIMENSIONAL: YES M.MODE: YES DOPPLER: YES COLOR FLOW: YES TDS: NO PORTABLE: NO DEFINITY: NO BUBBLE STUDY: NO DIAGNOSIS: TRANSIENT ISCHEMIC ATTACK CARDIAC HISTORY: CATHERIZATION: SURGERY: PROSTHETIC VALVE: PACEMAKER: MEASUREMENTS (cm) DIASTOLIC (NORMALS) SYSTOLIC (NORMALS) IVSd 1.4 (0.6-1.2) LA Diam 3.4 (1.9-4.0) LVEF 76% LVIDd 4.3 (3.5-5.7) LVIDs 2.4 (2.0-3.5) %FS 45% LVPWd 1.5 (0.6-1.2) Ao Diam 2.7 (2.0-3.7) 2 DIMENSIONAL ASSESSMENT: RIGHT ATRIUM: NORMAL LEFT ATRIUM: DILATED RIGHT VENTRICLE: NORMAL LEFT VENTRICLE: LEFT VENTRICULAR HYPERTROPHY TRICUSPID VALVE: NORMAL MITRAL VALVE: NORMAL PULMONIC VALVE: NORMAL AORTIC VALVE: NORMAL PERICARDIAL EFFUSION: NONE AORTIC ROOT: NORMAL LEFT VENTRICULAR WALL MOTION: HYPERDYNAMIC DOPPLER/COLOR FLOW: MILD TRICUSPID REGURGITATION. ESTIMATED RIGHT VENTRICULAR SYSTOLIC PRESSURE 40 mmHg. MILD PULMONARY HYPERTENSION. NO SIGNIFICANT LEFT VENTRICULAR OUTFLOW TRACT GRADIENT. IMPAIRED LEFT VENTRICULAR RELAXATION. COMMENTS: HYPERDYNAMIC LEFT VENTRICULAR EJECTION FRACTION. DILATED LEFT ATRIUM. LEFT VENTRICULAR HYPERTROPHY. MILD TRICUSPID REGURGITATION. IMPAIRED LEFT VENTRICULAR RELAXATION. TECHNOLOGIST: Harjit ARMSTRONG
--- NOTE | 2019-03-26 10:41 | RAD REPORT ---
EXAM DESCRIPTION: MRI - Brain Wo Cont - 03/26/2019 10:30 am CLINICAL HISTORY: TIA, stroke-like symptoms with hand weakness, blurred vision COMPARISON: Head Brain Wo Cont dated 03/25/2019 TECHNIQUE: Sagittal T1-weighted images were obtained along with axial PD, heavily T2-weighted and T2 -FLAIR images. Axial DWI and ADC mapping sequences were also obtained along with coronal heavily T2-w eighted images. FINDINGS: No intracranial hemorrhage, mass or acute infarction. There is no edema or shift of midlin e structures. No extra-axial fluid collections. Roy-matter/white matter junction is preserved. Signa l voids are seen as a normal finding in the major intracranial vessels. Patient has little identifiab le chronic ischemic change. Atrophy is mild for age with ventricles in proportion. No sella or supra sella abnormality. No globe or orbital content acute finding. Mastoid air cells and paranasal sinuses are clear. Masses are present along the inferior aspect of the left parotid gland. These are only partially imag ed on this study. Masses have been previously evaluated with MRI. IMPRESSION: No acute infarction changes are identifiable. No acute intracranial finding. Patient has mild for age atrophy with ventricles in proportion. Little identifiable chronic ischemic change present.
[2019-03-26] MEDS ORDERED: HYDRALAZINE HCL 20 MG/ML VIAL ONE (11:08)
[2019-03-26] MEDS: NA CHLORIDE 0.9% 1,000 ML IV SCH (11:43)
[2019-03-26] MEDS ORDERED: CEFTRIAXONE/SWI 1gm 1 GM/10 ML SYR IV SCH (12:30)
[2019-03-26] MEDS ORDERED: CEFTRIAXONE/SWI 1gm 1 GM/10 ML SYR ONE (13:03)
[2019-03-26 13:17] VITALS: BP 147/71; TEMP 98.7
--- NOTE | 2019-03-26 13:17 | P.CNS ---
Date of Consult: 03/26/19 Reason for Consult: john Requesting Physician: Nancy Khan Chief Complaint: Dizziness and blurry vision History of Present Illness: A 84-year-old woman with PMHX of CKD III , cr 1.7 in July , HTN on SHAHBAZ , CAD S/ P CABG presented to the emergency department with a complaint of dizziness and blurry vision pt was complaining of blurry vision for ~1month, w/u done as an OP , pt had near syncope , no LOC in Er Cr 2.6, SBP 180 she denied chest pain, palpitation, nausea , vomiting , or diarrhea taking NSAID every other day Allergies aspirin Allergy (Severe, Verified 03/26/19 00:18) Hives/Rash aspirin EC Allergy (Uncoded 03/26/19 00:18) Unknown Home medications list reviewed: Yes Home Medications: Lisinopril 40 mg PO DAILY #0 tablet 08/27/11 Meclizine HCl 25 mg PO TID PRN 02/17/14 Pantoprazole [Protonix Tab*] 40 mg PO DAILY 12/23/15 Ferrous Sulfate 325 mg PO DAILY #30 tablet 12/24/15 Metoprolol Tartrate [Lopressor*] 50 mg PO BID #60 tab 12/24/15 Amlodipine [Norvasc*] 10 mg PO DAILY 06/06/17 Atorvastatin Calcium [Lipitor] 1 tab PO DAILY 06/06/17 Fluticasone/Salmeterol [Advair Hfa 115-21 Mcg Inhaler] 8 gm IH BID #1 aer.w.adap 06/06/17 Furosemide [Lasix] 20 mg PO DAILY #30 tab 06/06/17 hydroCHLOROthiazide [Hydrochlorothiazide] 1 tab PO DAILY 06/06/17 predniSONE [Prednisone*] 20 mg PO BID #20 tab 06/06/17 - Past Medical/Surgical History Diabetic: No -: SHINGLES -: HTN -: HYPERLIPIDEMIA -: ANEMIA -: DVT IN LEFT LEG -: GI BLEED -: HYSTERECTOMY -: CABG - Family History Mother Medical History: Heart disease - Social History Smoking Status: Unknown if ever smoked Alcohol use: No CD- Drugs: No Caffeine use: Yes Place of Residence: Home Physical Examination Temp Pulse Resp BP Pulse Ox 98.2 F 75 15 148/71 H 98 03/26/19 07:45 03/26/19 07:45 03/26/19 07:45 03/26/19 07:45 03/26/19 07:45 General: Alert, In no apparent distress HEENT: Atraumatic Neck: Supple, JVD not distended Respiratory: Clear to auscultation bilaterally, Normal air movement Cardiovascular: No edema, Normal pulses, Regular rate/rhythm, Normal S1 S2, No rubs, No murmurs Gastrointestinal: Normal bowel sounds, Soft and benign, Non-distended, No tenderness Musculoskeletal: No swelling Integumentary: No rashes Neurological: Normal speech Laboratory Data (last 24 hrs) 03/25/19 15:25: WBC 7.6, Hgb 11.1 L, Hct 34.0 L, Plt Count 160 03/25/19 15:00: PT 11.5, INR 0.97 03/25/19 15:00: Sodium 146 H, Potassium 4.3, BUN 48 H, Creatinine 2.64 H, Glucose 91, Magnesium 1.9, Total Bilirubin 0.4, AST 14 L, ALT 17, Alkaline Phosphatase 113, Lipase 168 - Problems (1) Acute kidney injury superimposed on CKD Onset Date: 06/06/17 Current Visit: No Status: Acute Conclusions/Impression: John on CKD vs progressive CKD III possibly due to dehydration and poor intake 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
[2019-03-26] MEDS ORDERED: NA CHLORIDE 0.9% 1,000 ML IV SCH (14:00)
--- NOTE | 2019-03-27 01:17 | DS ---
Date of Discharge: 03/26/2019 Consultants: Dr. Lerner with Nephrology, Dr. Lala, Neurology. Discharge Diagnoses: 1.Transient ischemic attack. 2.Malignant hypertension. 3.Urinary tract infection, acute cystitis without hematuria. 4.Acute kidney injury, superimposed on chronic kidney disease stage 3. 5.Dizziness. 6.Hypertensive heart disease. 7.Coronary artery disease status post coronary artery bypass graft, as well as carotid artery diseas e status post stent. 8.Mixed hyperlipidemia. 9.History of deep venous thrombosis. 10.Left parotid gland swelling. Hospital Course: The patient is an 84-year-old female with past medical history of hypertension, hea rt disease, status post CABG, comes in with dizziness and blurry vision. The patient's blood pressur e was significantly elevated as well. Her workup revealed negative head CT scan. EKG did not show a ny acute ST changes. Patient did become normotensive in the ER. The patient was admitted for furthe r evaluation due to TIA type symptoms. Given her condition, the patient had MRI of the brain, which did not show any acute infarct. Her carotid artery ultrasound did show common carotid and proximal i nternal carotid artery stenting present on the right, dense plaquing limits visualization in the righ t ICA-CCA junction, elevated velocity values and abnormal ICA-CCA ratio on the right indicates signif icant stenosis distal to the stent. No significant left-sided plaquing changes. No stenosis on the left. No evidence of hemodynamically significant stenosis. Patient's echocardiogram showed ejection fraction of 76% and left ventricular hypertrophy. The patient's extremity venous study was negative for DVT in either lower extremity. Patient was started on guidelines for stroke, however, it should be noted that she claims allergy to full-dose aspirin, however, not to baby aspirin. With the full- dose aspirin she states she gets a rash. Her chest x-ray was also clear. The patient's kidney funct ion was elevated above her baseline. She does have some history of chronic kidney disease as is appa rent from a previous lab value. Patient was seen by Dr. Lerner with Nephrology, recommended agnieszka robles the lisinopril and kidney function did improve with IV fluid hydration. She will need to continue to follow up with Nephrology and have a repeat BMP in 1 week. Overall, patient did well. Her dizzi ness and blurry vision resolved. She was found to have positive UA and her urine culture was growing out 4+ gram-negative rods. The patient was then given a dose of Rocephin and case was discussed wit h neurologist, Dr. Lala, regarding the carotid artery distal stenosis passed the stent. He recom mended outpatient followup with Interventional Radiology at [facility] for 4-vessel angiogram and pos sible intervention, he stated that this is not emergent. Patient does not require hospitalization fo r this finding, which is likely chronic. Regarding her parotid gland swelling, patient has been foll owing up with her primary care physician, Dr. Rodriguez, and has been referred to Dr. Fuller, ENT and andujar s an appointment on April 12, for further evaluation of her parotid gland swelling, which she under stands may be malignant and she understands the importance of following up with ENT for further evalu ation, diagnosis, and treatment. Overall, patient did well during the course of the hospital stay. She was able to ambulate without a ny difficulty. She was then cleared for discharge from [employer] sales consultant's standpoint. She was sent home i n a stable condition. Activity: As tolerated. Medications: As per medication reconciliation list. Followup: Follow up with primary care physician in 2-3 days. Follow up with neurologist, Dr. Chaudhary ll in 2 weeks. Follow up with Interventional Radiology at [facility] for carotid artery disease. Follow up with flight attendant, Dr. Lerner, in 2 weeks. Follow up with ENT as scheduled for paroti d gland swelling. Repeat BMP in 1 week. Return to ER for worsening condition. Diet: Heart healthy. Activity: Fall precautions. Physical Examination: General: Awake, alert, and oriented x3 elderly female. CV: S1, S2. Respiratory: Moving air well bilaterally. Abdomen: Soft, nontender, nondistended. Positive bowel sounds. Extremities: No clubbing, cyanosis, edema. Neurologic: Nonfocal. SA/MODL Voice ID: [id number] Report ID: [id number]
== END 2019-03-26 15:06 | disposition home or self-care (01) ==
LOC: ER 13:19 → ERHOLD 17:18
PROVIDERS: ADMIT Family Medicine; ATTEND Internal Medicine
DX: G45.9 Transient cerebral ischemic attack, unspecified (principal); I10 Essential (primary) hypertension; N30.00 Acute cystitis without hematuria; I12.9 Hypertensive chronic kidney disease with stage 1 through stage 4 chronic kidney disease, or unspecified chronic kidney disease; N18.3 Chronic kidney disease, stage 3 (moderate); N17.9 Acute kidney failure, unspecified; I25.10 Atherosclerotic heart disease of native coronary artery without angina pectoris; Z95.1 Presence of aortocoronary bypass graft; E78.2 Mixed hyperlipidemia; Z86.718 Personal history of other venous thrombosis and embolism; R59.0 Localized enlarged lymph nodes
CPT/HCPCS: 96361; 93005; 93306; 87088; 85025 ×2; 87086; 80048; 36415; 83735 ×2; 84100; 85610; 80076; 87077; 87186; 81003; 84484; 83690; 80053; 83880; 70450; 71045; 93880; 93970; 70551; 94760 ×2; 96360; 99285; J0360; J0696; J7030; G0378 ×2; 90670; Q2035

== ENCOUNTER 2019-05-28 08:47 | Day surgery (SDC) | payer OTHER ==
[2019-05-26 17:25] LABS: Potassium 4.4 mmol/L (3.5-5.1)
--- OUTSIDE RECORDS SUMMARY | 2019-05-28 08:49 | XMS REPORT ---
:1935 Author Organization [facility] Address [address] [place] [address] Care Team Providers Name Role Phone ZAN [...] Reference Range Comments HEMOGLOBIN A1C (BEAKER) (test yvup=277) 6.0 % 4.3-6.1 POSSIBLE HEMOGLOBIN C VARIANT NOTED IN HEMOGLOBIN A1C CHROMATOGRAPH. SUGGEST HEMOGLOBIN ELECTROPHORESIS IF CLINICALLY INDICATED.TROPONIN [id number] 09:10:00 Test Item Value Reference Range Comments TROPONIN I (BEAKER) (test ihew=184) < ng/mL 0.00-0.03 Troponin I (TnI) levels [...] failure, acidosis, acute neurological disease, and persistent tachyarrhythmia.[id number] 08:58:00 Test Item Value Reference Range Comments PARTIAL THROMBOPLASTIN TIME (BEAKER) (test 144.1 seconds 22.5-36.0 mkio=116) CBC W/PLT COUNT & AUTO [id number] 07:04:00 Test Item Value Reference Range Comments WHITE BLOOD CELL COUNT (BEAKER) (test lpda=006) 9.8 K/ L 3.5-10.5 RED BLOOD CELL COUNT (BEAKER) (test hceq=041) 4.61 M/ L 3.93-5.22 HEMOGLOBIN (BEAKER) (test ehhq=054) 10.2 GM/DL 11.2-15.7 HEMATOCRIT (BEAKER) (test ujkg=608) 30.8 % 34.1-44.9 MEAN CORPUSCULAR VOLUME (BEAKER) (test mnva=100) 66.8 fL 79.4-94.8 MEAN CORPUSCULAR HEMOGLOBIN (BEAKER) (test 22.1 pg 25.6-32.2 qydq=590) MEAN CORPUSCULAR HEMOGLOBIN CONC (BEAKER) (test 33.1 GM/DL 32.2-35.5 igia=814) RED CELL DISTRIBUTION WIDTH (BEAKER) (test 16.3 % 11.7-14.4 zsvj=703) PLATELET COUNT (BEAKER) (test yqcc=262) 173 K/CU MM 150-450 MEAN PLATELET VOLUME (BEAKER) (test oxwa=501) 11.7 fL 9.4-12.3 NUCLEATED RED BLOOD CELLS (BEAKER) (test 0 /100 WBC 0-0 axln=191) NEUTROPHILS RELATIVE PERCENT (BEAKER) (test 73 % zdgi=799) LYMPHOCYTES RELATIVE PERCENT (BEAKER) (test 13 % zoho=731) MONOCYTES RELATIVE PERCENT (BEAKER) (test 11 % vzxo=543) EOSINOPHILS RELATIVE PERCENT (BEAKER) (test 2 % nvbf=563) BASOPHILS RELATIVE PERCENT (BEAKER) (test 1 % apzo=474) NEUTROPHILS ABSOLUTE COUNT (BEAKER) (test 7.17 K/ L 1.56-6.13 btln=648) LYMPHOCYTES ABSOLUTE COUNT (BEAKER) (test 1.28 K/ L 1.18-3.74 xvdz=581) MONOCYTES ABSOLUTE COUNT (BEAKER) (test 1.07 K/ L 0.24-0.36 hrxr=361) EOSINOPHILS ABSOLUTE COUNT (BEAKER) (test 0.19 K/ L 0.04-0.36 xbnn=877) BASOPHILS ABSOLUTE COUNT (BEAKER) (test 0.06 K/ L 0.01-0.08 nxsf=290) IMMATURE GRANULOCYTES-RELATIVE PERCENT (BEAKER) 0 % 0-1 (test rzxg=8137) [id number] 07:03:00 Test Item Value Reference Range Comments MAGNESIUM (BEAKER) (test ewvy=263) 3.1 mg/dL 1.6-2.6 BASIC METABOLIC [id number] 07:03:00 Test Item Value Reference Range Comments SODIUM (BEAKER) (test 141 meq/L 136-145 xcnm=552) POTASSIUM (BEAKER) (test 3.6 meq/L 3.5-5.1 gcpe=714) CHLORIDE (BEAKER) (test 108 meq/L 98-107 ahdp=001) CO2 (BEAKER) (test 25 meq/L 22-29 vtew=559) BLOOD UREA NITROGEN 36 mg/dL 7-21 (BEAKER) (test sdab=708) CREATININE (BEAKER) (test 1.72 mg/dL 0.57-1.25 xbbt=624) GLUCOSE RANDOM (BEAKER) 108 mg/dL 70-105 (test qszd=293) CALCIUM (BEAKER) (test 8.9 mg/dL 8.4-10.2 hzrq=653) EGFR (BEAKER) (test 34 mL/min/1.73 sq m ESTIMATED GFR IS NOT apzc=1978) ACCURATE CREATININE CLEARANCE IN PREDICTING GLOMERULAR FILTRATION RATE. ESTIMATED GFR IS NOT APPLICABLE FOR DIALYSIS PATIENTS. [id number] 02:55:00 Test Item Value Reference Range Comments PARTIAL THROMBOPLASTIN TIME (BEAKER) (test 104.5 seconds 22.5-36.0 ozxj=931) [id number] 01:16:00 Test Item Value Reference Range Comments PARTIAL THROMBOPLASTIN TIME (BEAKER) (test > seconds 22.5-36.0 chlm=506) TROPONIN [id number] 01:07:00 Test Item Value Reference Range Comments TROPONIN I (BEAKER) (test pjsu=381) < ng/mL 0.00-0.03 Troponin I (TnI) levels [...] failure, acidosis, acute neurological disease, and persistent tachyarrhythmia.[id number] 23:20:00 Test Item Value Reference Range Comments MAGNESIUM (BEAKER) (test jdqz=390) 1.5 mg/dL 1.6-2.6 TROPONIN [id number] 21:24:00 Test Item Value Reference Range Comments TROPONIN I (BEAKER) (test rgnu=773) < ng/mL 0.00-0.03 Troponin I (TnI) levels [...] failure, acidosis, acute neurological disease, and persistent tachyarrhythmia.[id number] 21:18:00 Test Item Value Reference Range Comments PARTIAL THROMBOPLASTIN TIME (BEAKER) (test 189.3 seconds 22.5-36.0 kmrj=537) COMPREHENSIVE METABOLIC [id number] 21:18:00 Test Item Value Reference Range Comments TOTAL PROTEIN (BEAKER) 6.0 gm/dL 6.0-8.3 (test bewo=700) ALBUMIN (BEAKER) (test 3.3 g/dL 3.5-5.0 xjsb=3518) ALKALINE PHOSPHATASE 88 U/L 40-150 (BEAKER) (test kbfg=359) BILIRUBIN TOTAL (BEAKER) 0.3 mg/dL 0.2-1.2 (test ffju=456) SODIUM (BEAKER) (test 143 meq/L 136-145 wnnu=750) POTASSIUM (BEAKER) (test 3.5 meq/L 3.5-5.1 eaaq=200) CHLORIDE (BEAKER) (test 110 meq/L 98-107 egon=447) CO2 (BEAKER) (test 23 meq/L 22-29 pvlj=077) BLOOD UREA NITROGEN 38 mg/dL 7-21 (BEAKER) (test wwvw=945) CREATININE (BEAKER) (test 1.86 mg/dL 0.57-1.25 wbbj=460) GLUCOSE RANDOM (BEAKER) 177 mg/dL 70-105 (test emsz=747) CALCIUM (BEAKER) (test 8.8 mg/dL 8.4-10.2 wcmj=727) AST (SGOT) (BEAKER) (test 17 U/L 5-34 yusb=120) ALT (SGPT) (BEAKER) (test 17 U/L 6-55 uzlj=327) EGFR (BEAKER) (test 31 mL/min/1.73 sq m ESTIMATED GFR IS NOT jsew=2549) ACCURATE CREATININE CLEARANCE IN PREDICTING GLOMERULAR FILTRATION RATE. ESTIMATED GFR IS NOT APPLICABLE FOR DIALYSIS PATIENTS. [id number] 21:07:00 Test Item Value Reference Range Comments FIBRINOGEN LEVEL (BEAKER) (test jdhy=017) 284 mg/dl 225-434 PROTHROMBIN TIME/[id number] 21:06:00 Test Item Value Reference Range Comments PROTIME (BEAKER) (test ovgz=784) 14.4 seconds 11.7-14.7 INR (BEAKER) (test zauj=671) 1.2 <=5.9 RECOMMENDED COUMADIN/WARFARIN INR THERAPY RANGESSTANDARD DOSE: 2.0 - 3.0 Includes: PROPHYLAXIS forvenous thrombosis, systemic embolization; TREATMENT for venous thrombosis and/or pulmonary embolus.HIGH RISK: Target INR is 2.5-3.5 for patients with mechanical heart valves.CBC W/PLT COUNT & AUTO [id number] 21:01:00 Test Item Value Reference Range Comments WHITE BLOOD CELL COUNT 8.9 K/ L 3.5-10.5 (BEAKER) (test faig=165) RED BLOOD CELL COUNT (BEAKER) 4.46 M/ L 3.93-5.22 (test uwva=412) HEMOGLOBIN (BEAKER) (test 9.8 GM/DL 11.2-15.7 bvxe=058) HEMATOCRIT (BEAKER) (test 30.2 % 34.1-44.9 ahfl=912) MEAN CORPUSCULAR VOLUME 67.7 fL 79.4-94.8 (BEAKER) (test juhh=018) MEAN CORPUSCULAR HEMOGLOBIN 22.0 pg 25.6-32.2 (BEAKER) (test azvh=431) MEAN CORPUSCULAR HEMOGLOBIN 32.5 GM/DL 32.2-35.5 CONC (BEAKER) (test jgoo=705) RED CELL DISTRIBUTION WIDTH 16.2 % 11.7-14.4 (BEAKER) (test idrb=145) PLATELET COUNT (BEAKER) (test 168 K/CU MM 150-450 siof=204) MEAN PLATELET VOLUME (BEAKER) fL 9.4-12.3 Unable to report due to (test isdk=201) abnormal Platelet population distribution. NUCLEATED RED BLOOD CELLS 0 /100 WBC 0-0 (BEAKER) (test xybd=590) NEUTROPHILS RELATIVE PERCENT 74 % (BEAKER) (test iagv=969) LYMPHOCYTES RELATIVE PERCENT 14 % (BEAKER) (test vstb=534) MONOCYTES RELATIVE PERCENT 10 % (BEAKER) (test ggtl=637) EOSINOPHILS RELATIVE PERCENT 2 % (BEAKER) (test aluj=531) BASOPHILS RELATIVE PERCENT 1 % (BEAKER) (test jvtd=905) NEUTROPHILS ABSOLUTE COUNT 6.58 K/ L 1.56-6.13 (BEAKER) (test kqkb=659) LYMPHOCYTES ABSOLUTE COUNT 1.22 K/ L 1.18-3.74 (BEAKER) (test tbgk=957) MONOCYTES ABSOLUTE COUNT 0.85 K/ L 0.24-0.36 (BEAKER) (test fsfx=570) EOSINOPHILS ABSOLUTE COUNT 0.19 K/ L 0.04-0.36 (BEAKER) (test nmzh=234) BASOPHILS ABSOLUTE COUNT 0.05 K/ L 0.01-0.08 (BEAKER) (test bxrb=096) IMMATURE GRANULOCYTES-RELATIVE 0 % 0-1 PERCENT (BEAKER) (test tcjv=5904) RAD, CHEST, 1 VIEW, NON [id number] 20:34:00Reason for exam:->new admissionShould this be performed at the bedside?->YesFINAL REPORT INDICATION: new admission COMPARISON: None TECHNIQUE: Single frontal view of the chest. FINDINGS: Lungs and pleura: Clear lungs. No effusion.Heart and mediastinum: Normal heart size. Atherosclerotic calcification of the aortaOsseous structures: No acute abnormality.Other: None. IMPRESSION: No acute intrathoracic abnormality. Signed: Wilmar Suarez MDReport Verified Date/Time: 08/03/2018 20:34:40 Reading Location: [address] Neuro Reading Room
[2019-05-28] MEDS: HYDRALAZINE HCL 20 MG/ML VIAL ONE ×2 (10:20→10:35)
[2019-05-28] MEDS ORDERED: LIDOCAINE 1% W/EPI 1:100,000 MDV 20 ML VIAL ONE (10:51)
[2019-05-28] MEDS ORDERED: EPHEDRINE SULF 50 MG/ML VIAL ONE (13:30)
[2019-05-28] MEDS ORDERED: LIDOCAINE 2% MPF 5 ML VIAL ONE (13:35)
[2019-05-28] MEDS ORDERED: FENTANYL CITR 100 MCG/2 ML ONE (13:35)
[2019-05-28] MEDS ORDERED: propofoL 200 MG/20 ML VIAL IV ONE (13:35)
[2019-05-28] MEDS ORDERED: ROCURONIUM 50 MG/5 ML VIAL IV ONE (13:35)
--- NOTE | 2019-05-28 13:37 | P.BOP ---
Preoperative diagnosis: left parotid mass Postoperative diagnosis: same Primary procedure: parotidectomy, left, superfical with facial nerve dissection Resident Care Spec: ANGELO RENO Estimated blood loss: <20ml Specimen: left parotid Findings: well circumscribed mass with edema of surrounding tissues Anesthesia: General Complications: None Drain(s): CAPO drain Fluids & blood products: see anesthesia records Transferred to: Recovery Room Condition: Good
[2019-05-28] MEDS ORDERED: ONDANSETRON 4 MG/2 ML VIAL ONE (13:45)
[2019-05-28 14:46] VITALS: O2SAT 92
[2019-05-28 15:24] VITALS: BP 163/57; TEMP 97.8
--- NOTE | 2019-06-01 07:35 | OP ---
Date of Procedure: 05/28/2019 Surgeon: Kristy Fuller MD [facility] Manager: Melba De Anda Preoperative Diagnosis: Left parotid mass. Postoperative Diagnosis: Left parotid mass. Procedure: Parotidectomy, left superficial with facial nerve dissection. Indication For Procedure: The patient is an 84-year-old who presented to the clinic with a left neck mass, which was fluctuant and of uncertain duration. The findings were demonstrated on the patient' s MRI from January 2019, but not present on any prior imaging that I could discern. The patient und erwent aspiration due to the cystic appearance, but the specimen was nondiagnostic in terms of behavi or. She re-presented with recurrence of the swelling and discomfort due to the size of the mass. e risks, benefits, and alternatives to the procedure were discussed with the patient and her daughter and she opted to proceed. Description Of Procedure: The patient was brought to the operating room. She was placed under gener al anesthesia via oral endotracheal tube. The mass was palpated in the upper portion of the left nec k below the inferior border of the mandible. The planned incision site over the mass was injected wi 1% lidocaine with epinephrine and the face and neck was prepped with Betadine and draped in a ster ile fashion. An extended parotidectomy incision was drawn, but only the inferior portion overlying t he mass was incised. The skin and subcutaneous tissue were divided using Bovie electrocautery until the platysma was identified along the lower aspect. A subplatysmal flap was elevated superiorly and inferiorly. The posterior aspect of the parotid gland was identified and dissected from the overlyin g skin flap. The inferior most aspect of the mass was palpated and dissection from surrounding soft tissue structures on the inferior and posterior aspects was carried out. The superior aspect of the mass was then palpated and Bovie electrocautery was used to judiciously dissect through a normal-appe aring parotid tissue just superior to this mass. Careful dissection was carried out until twitching of the lower face was noted. Blunt dissection was then carried out until the marginal mandibular ner ve was identified. This nerve was traced from its distal position proximal toward the pes elevating the parotid tissue superficial to this nerve branch. The mass was noted to extend and appeared to be coming from the deep aspect of the parotid gland and therefore the marginal mandibular branch was ca refully mobilized and gently retracted superiorly as the LigaSure was used to divide soft tissue odette chments. The tissues immediately adjacent to the mass appeared edematous, but were not specifically inflamed or particularly friable. There was no evidence of active infection in the soft tissues at t his time. The mass was gently elevated from the deep attachments until it was completely freed from the underlying tissues. The specimen was inspected and sent to pathology for permanent section only. The surgical bed was then thoroughly irrigated with sterile saline and areas of bleeding were contr olled as needed with direct pressure and electrocautery. Once hemostasis was ensured, a CAPO drain 10- Guine[place] round was placed within the posterior aspect of the inferior skin flap and draped within the s urgical bed, taking care to avoid placement of the drain adjacent to the marginal mandibular nerve. The drain was secured using a 4-0 Vicryl suture. The incision was closed in a layered fashion using 4-0 Vicryl deep sutures, 5-0 Monocryl subcuticular suture, followed by Dermabond to seal the incision . The patient was then returned to care of anesthesia for awakening and extubation in the operating room, which proceeded without difficulty. Complications: None. Disposition: The patient will be discharged home later today in the care of her family with instruct ions for drain care. She may resume diet as tolerated. Due to her advanced age, no narcotic medicat ions are prescribed. The patient can take Tylenol and ibuprofen as needed for pain and contact Dr. Barbie amanda if pain is inadequately controlled and we will consider addition of low-dose narcotics if need ed. TRUE/MORRIS Voice ID: [id number] Report ID: [id number]
== END 2019-05-28 16:15 | disposition home or self-care (01) ==
LOC: OR 08:47
PROVIDERS: ATTEND Otolaryngology
PROC: 00BM0ZZ Excision of Facial Nerve, Open Approach (ICD-10-PCS; 2019-05-28)
PROC: 0CB90ZZ Excision of Left Parotid Gland, Open Approach (ICD-10-PCS; principal; 2019-05-28 11:30)
DX: D11.0 Benign neoplasm of parotid gland (principal); I10 Essential (primary) hypertension; F17.200 Nicotine dependence, unspecified, uncomplicated; Z79.82 Long term (current) use of aspirin; Z82.49 Family history of ischemic heart disease and other diseases of the circulatory system
CPT/HCPCS: 80048; 36415; 88307; 42415; J0360; J2704; J3010; J2405; 88305